=== PATIENT | female | born 1950 | race Caucasian/White ===

== ENCOUNTER 2024-09-17 08:50 | Emergency (ER) | payer MEDICARE, SELFPAY ==
[2024-09-17 09:00] VITALS: BP 115/75; PULSE 79; RESP 16; TEMP 36.3; O2SAT 100
--- OUTSIDE RECORDS SUMMARY | 2024-09-17 09:16 | XMS_ITS | Encounter Summary ---
Author Organization [facility] Address [address] [place] [address] Care Team Providers Care Senior Auditor Name Role Phone Jordana Schofield Unavailable Unavailable Kateryna Morales MD Primary Care Provider [phone] Kateryna Morales MD Unavailable Karen Wilkins DO Primary Care Provider [phone] Karen Wilkins DO Unavailable [phone] Reason for Referral * Test (Routine) - Closed Specialty Diagnoses / Procedures Referred By Contac t Referred To Contact Diagnoses Paroxysmal atrial fibrillation ([facility]) Procedures TRANSESOPHAGEAL ECHO Key Osborne MD [address] [address] Phone: tel: fax: Referral ID Status Reason Start Date Expiration Date Visits Re quested Visits Authorized [id number] Closed 05/02/2023 05/01/2024 1 1 ER CARBON PAPER Encounter Details Date Type Department Care Team (Late st Contact Info) Description 05/02/2023 Prep for Case Cardiovascular Medicine: [facility] [address] [facility]. [address] 5, [address] [place] [address] Key Osborne MD [address] [facility] [id number] [place] [address] Paroxysmal atrial fibrillation (CMS-HCC) (Primary Dx) Social History Tobacco Use Types Packs/Day Years Used Date Smoking Tobacco: Former Cigarettes 0.5 10 1 1973 Smokeless Tobacco: Never Comments:I quit smoking in m y late . Alcohol Use Standard Drinks/Week Comments Not Currently 0 (1 standard drink = 0.6 oz pure alcohol) I quit drinking in May 1988 PHQ-2 Answer Date Recorded PHQ-2 Score 0 04/16/2023 Social Connections Answer Date Recorded Do you often feel that you lack companionship? N o 04/14/2023 Alcohol Use Answer Date Recorded Alcohol Use No 06/01/2021 Male: 9+ ounces (15+ Standard Drinks) per week T hreshold Not on file 06/01/2021 Female: 4.8+ ounces (8+ Standard Drinks) per wee k Threshold 0 06/01/2021 Financial Resource Strain Answer Date R ecorded In the last 12 months, has y our Digital Reasoning shut off your service for not paying your bills? No 04/14/2023 Do problems getting childcar e make it difficult to work or study? No 04/14/2023 In the last 12 months, have you needed to see a doctor, but could not because of cost? No 04/14/2023 In the last 12 months, did you skip medications to save money? No 04/14/2023 Stress Answer Date Recorded Total Score: 0 05/18/2022 Food Insecurity Answer Date Recorded Within the past 12 months we worried whether our food would run out before we got money to buy more. Never True 04/14/2023 Within the past 12 months th e food we bought just didn't last and we didn't have money to get more. Never True 04/14/2023 Transportation Needs Answer Date Record ed In the past 12 months, have you ever gone without health care because you didn't have a way to get there? No 04/14/2023 Housing Stability Answer Date Recorded Are you worried that in the next 2 months, you may not have stable housing? No 04/14/2023 Health Literacy Answer Date Recorded Do you have problems underst anding what is told to you about your medical conditions? No 04/14/2023 Comments No Sex and Gender Information Value Date Recorded Sex Assigned at Female 11/21/2019 9:40 AM CDT Legal Sex Female 5:58 PM CDT Gender Identity Female 11/21/2019 9:40 AM CDT Sexual Orientation Straight 08/15/2020 8: 43 PM CDT documented as of this encounter Functional Status * Does the patient have a hearing impairment: Answer Date of Assessment Author No 06/28/2022 4:00 AM CDT Bronwyn Vail RN * Does the patient have a visual impairment: Answer Date of Assessment Author Yes 11/12/2020 1:33 PM CDT Marla Zuniga MA * Does the patient have impaired ambulation: Answer Date of Assessment Author No 11/12/2020 1:33 PM CDT Marla Zuniga MA * Does the patient have an activity of daily living (ADL) impairment: Answer Date of Assessment Author No 11/12/2020 1:33 PM CDT Marla Zuniga MA * Does the patient have an instrumental activity of daily living (IADL) impairment: Answer Date of Assessment Author No 11/12/2020 1:33 PM CDT Marla Zuniga MA documented as of this encounter Mental Status * Does the patient have a cognitive impairment: Answer Entry Date Author No 11/12/2020 1:33 PM CDT Marla Zuniga MA documented in this encounter Plan of Treatment Not on file documented as of this encounter Goals Goal Patient Goal Type Associated Problems Recent Progress Patient-Stated? Author GOAL General On track( 023 11:07 AM CDT) No Gaby Batres RN Note: Not to fall Resume normal activities Hospital On track( 021 10:16 PM CDT) Yes Ellen May RN Decrease pain Hospital On track( 021 10:17 PM CDT) No Garrett Torrez, TOW TRUCK DRIVER-COVER MAKER Note: Pt's pain will be under control while in the hospital. Medication Adherence Medication Adherence On track( 021 10:16 PM CDT) No Josefina Koch RN documented as of this encounter Results * PRASHANT INTCD PEAT SHREDDER TENDER (07/09/2023 12:55 PM CDT) BSA 1.69 m2 OTHER OUTSIDE LAB CV ECHO PV TOOLING SPECIALIST EP staff; anesthesia staff OTHER OUTSIDE LAB Cardiology Ultrasound Machine Siemens [id number] OTHER OUTSIDE LAB Anatomical Region Laterality Modality Ultrasound Narrative 07/09/2023 7:19 PM CDT Intraoperative transesophageal echocardiogram was performed during the Watchman left atrial appendage closure procedure. Limited Baseline PRASHANT: Left ventricular systolic function is normal. LVEF=55-60% 3 device leads present in the SVC. Mild to moderate left atrial enlargement. The left atrium and left atrial appendage are free of thrombus. No pericardial effusion. Left atrial appendage measurements (width x depth in mm) 0 degrees: 20.3 x 28.7 45 degrees: 20.3 x 25.7 90 degrees: 22.2 x 24.8 135 degrees: 24.4 x 26.5 Successful interatrial septostomy was performed under PRASHANT-guidance. The atrial septum was punctured using LiquidTextcross RF wire and left atrial access obtained. PRASHANT and fluoroscopy were used to guide wires, catheters and Watchman closure device into place during the procedure. WATCHMAN FLX Pro 31 mm device deployed. Lot # [id number] Post deployment device measurements (width in mm) 0 degrees: 24.7 45 degrees: 24.2 90 degrees: 25.3 135 degrees: 25.1 Post Procedure: Well-seated, well-positioned 31 mm WATCHMAN FLX Pro left atrial appendage closure device. Color Doppler shows no flow seen through or around the closure device. No device-related thrombus. No left atrial thrombus. No pericardial effusion. A small, left to right interatrial shunt is noted at the site of the trans-septal puncture. us Key Field MD ECHO ORDERABLES Final Result documented in this encounter Visit Diagnoses Diagnosis Paroxysmal atrial fibrillation ([facility])- Primary Atrial fibrillation documented in this encounter Orders Case Request Count Last Ordered Date First Orde red Date CASE REQUEST EP LAB 1 05/02/2023 documented in this encounter Additional Health Concerns Infection Onset Date Last Indicated Resolved Time C difficile Rule-Out 08/29/2023 07/12/2024 024 9:19 PM CDT C difficile Rule-Out 07/11/2024 07/12/2024 025 3:06 PM CDT Assessment Noted Time A fall risk assessment has been complete d for the patient 05/01/2023 4:28 PM COATER CARBON PAPER PHQ-2 Depression Total Score: 0 04/16/19 24 8:27 PM COATER CARBON PAPER documented as of this encounter Care Teams Senior Auditor Relationship Specialty Start Date End Date Kateryna Morales MD [address] [place] [id number] PCP - General Internal Medicine 11/23/22 02/05/24 Karen Wilkins DO [address] [place] [address] PCP - General Geriatric Medicine, Internal Medicine 02/06/24 Jordana Schofield 12/13/15 Kateryna Morales MD [address] [place] [address] Internal Medicine 11/23/22 Karen Wilkins DO [address] [place] [address] CCP - Continuity of Care Provider Geriatric Medicine, Internal Medicine 02/06/24 documented as of this encounter
--- OUTSIDE RECORDS SUMMARY | 2024-09-17 09:16 | XMS_ITS | Continuity of Care Document ---
Author Organization [facility]. If a dditional information is needed, contact Health Information Management at [phone] Address [address] [place] [address] Phone Care Team Providers Care Retail Route Supervisor Name Role Phone Unavailable Unavailable Unavailable Unavailable Unavailable Unavailable Unavailable Unavailable Unavailable Unavailable Unavailable Unavailable Unavailable Unavailable Unavailable Unavailable Unavailable Unavailable Unavailable Problems Illness, unspecified Onset:04-Dec-2019 Hyperlipidemia Comments:Other hyperlipidemi a I10(I10) Comments:Essential hypertens ion with goal blood pressure less than 140\/90 Acute idiopathic pericarditi s Comments:Acute idiopathic pericarditis Paroxysmal atrial fibrillati on Comments:Intermittent atrial fibrillation Mesenteric artery stenosis Comments:Superior mesenteric artery stenosis Dupuytren contracture of lef t palm Comments:Dupuytren's contrac ture of left hand Pain in hallux Comments:Pain of left great toe Essential (primary) hyperten arnol Other hyperlipidemia Allergies and Adverse Reactions Penicillins(Allergy) Onset: 10-Sep-2014 Reaction:UNKNOWN No Known Contrast Allergies( Allergy) Onset: 07-May-2008 No Known Food Allergies(Venkat rgy) Onset: 07-May-2008 No Known Other Allergies(All ergy) Onset: 07-May-2008 PENICILLIN(Allergy) Onset: 07-May-2008 Reaction:UNKNOWN No Known Allergies(Allergy) Doxycycline Hyclate(Allergy) Reaction:severe diarrhea Penicillin G Potassium 54032 00 UNT/ML Injectable Solution(Allergy) Reaction:childhood Medications Cephalexin 500 MG Oral Table t;500 MG Orally Four times a day, 1 tablet Quantity:40 SNAVELY SONNY Start:12-May-2020 Status:Inactive Comments:500 MG Orally Four times a day, 1 tablet Levofloxacin 250 MG Oral Tab let [Levaquin];250 MG Orally Daily, 1 tablets Quantity:7 KARLEE DENNIS Start:30-Jan-2017 Status:Inactive Comments:250 MG Orally Daily, 1 tablets NITROFURANTOIN, MACROCRYSTAL S 25 MG / Nitrofurantoin, Monohydrate 75 MG Oral Capsule [Macrobid];100 MG Orally every 12 hrs, 1 capsule with food Quantity:10 KARLEE DENNIS Start:29-Jan-2017 Status:Inactive Comments:100 MG Orally every 12 hrs, 1 capsule with food 120 ACTUAT Fluticasone propi tong 0.05 MG/ACTUAT Nasal Inhaler;50 MCG/ACT Nasally Once a day, 2 sprays in each nostril Quantity:1 KARLEE DENNIS Start:11-Nov-2015 Comments:50 MCG/ACT Nasally Once a day, 2 sprays in each nostril 12 HR desloratadine 2.5 MG / Pseudoephedrine sulfate 120 MG Extended Release Oral Tablet [Clarinex-D];2.5-120 MG Orally every 12 hrs, 1 tablet Quantity:60 KARLEE DENNIS Start:11-Nov-2015 Comments:2.5-120 MG Orally every 12 hrs, 1 tablet {21 (methylPREDNISolone 4 MG Oral Tablet [Medrol]) } Pack [Medrol Dosepak];4 MG Orally As directed, as directed Quantity:1 KARLEE DENNIS Start:04-Nov-2015 Status:Inactive Comments:4 MG Orally As directed, as directed POTASSIUM CHLORIDE 20 MEQ OR AL PACKET;20 MEQ Orally once a day, 1 tablet Quantity:14 KARLEE DENNIS Start:19-May-2015 Status:Inactive Comments:20 MEQ Orally once a day, 1 tablet Docusate Sodium 100 MG Oral Capsule [Colace];100 MG Orally Once a day, 1 capsule as needed Quantity:30 KARLEE DENNIS Start:07-Apr-2014 Status:Inactive Comments:100 MG Orally Once a day, 1 capsule as needed Hydrochlorothiazide 12.5 MG / Lisinopril 20 MG Oral Tablet;20-12.5 MG Orally as directed, 1 tab in am and 0.5 tab in pm PATSYKATIE SONNY Start:06-Sep-2012 Status:Inactive Comments:20-12.5 MG Orally as directed, 1 tab in am and 0.5 tab in pm Aspir-81;81 MG Orally Once a day, 1 tablet KARLEE DENNIS Status:Inactive Comments:81 MG Orally Once a day, 1 tablet Metamucil;48.57 % Orally Sandra ly, as directed KARLEE DENNIS Status:Inactive Comments:48.57 % Orally Daily, as directed Aspirin 81 MG Chewable Table t;81 MG Orally Once a day, 1 tablet KARLEE DENNIS Status:Inactive Comments:81 MG Orally Once a day, 1 tablet Atorvastatin Calcium;40 MG O rally Once a day, 1 tablet Quantity:90 KARLEE DENNIS Comments:40 MG Orally Once a day, 1 tablet Fiber;- Orally Daily, as dir ected KARLEE DENNIS Comments:- Orally Daily, as directed apixaban 5 MG Oral Tablet [Eliquis];5 MG Orally BID, 1 tablet KARLEE DENNIS Comments:5 MG Orally BID, 1 tablet Famotidine;40 MG Orally Twic e a day, 1 tablet as needed KARLEE DENNIS Status:Inactive Comments:40 MG Orally Twice a day, 1 tablet as needed Biotin;10 MG Orally Once a d ay, 1 tablet KARLEE DENNIS Status:Inactive Comments:10 MG Orally Once a day, 1 tablet Ibuprofen;200 MG Orally Thre e times a day, 1 tablet with food or milk as needed KARLEE DENNIS Status:Inactive Comments:200 MG Orally Three times a day, 1 tablet with food or milk as needed Melatonin;5 MG Orally Once a day, 1 tablet at bedtime as needed with food KARLEE DENNIS Status:Inactive Comments:5 MG Orally Once a day, 1 tablet at bedtime as needed with food Acetaminophen;500 MG Orally every 6 hrs, 1 tablet as needed KARLEE DENNIS Status:Inactive Comments:500 MG Orally every 6 hrs, 1 tablet as needed Biotin Forte;5 MG Orally Twi ce a day, 1 tablet Quantity:30 KARLEE DENNIS Status:Inactive Comments:5 MG Orally Twice a day, 1 tablet Simvastatin;20 MG orally Onc e each night, 1 tab(s) Quantity:90 KARLEE DENNIS Status:Inactive Comments:20 MG orally Once each night, 1 tab(s) Centrum Silver 50+Women;- Or ally , as directed KARLEE DENNIS Comments:- Orally , as direc ellen Calcium Carbonate 1500 MG / Cholecalciferol 200 UNT Oral Tablet;600-200 MG-UNIT Orally Twice a day, 1 tablet with food KARLEE DENNIS Status:Inactive Comments:600-200 MG-UNIT Orally Twice a day, 1 tablet with food Spironolactone 25 MG Oral Ta blet;25 MG Orally Once a day, 1 tablet KARLEE DENNIS Status:Inactive Comments:25 MG Orally Once a day, 1 tablet Lasix;40 MG Orally Once a da y, 1 tablet Quantity:30 KARLEE DENNIS Status:Inactive Comments:40 MG Orally Once a day, 1 tablet Flecainide Acetate 50 MG Ora l Tablet;50 MG Orally BID, 1 tablet KARLEE DENNIS Comments:50 MG Orally BID, 1 tablet Docusate Calcium;240 MG Oral ly BID, 2 capsules KARLEE DENNIS Status:Inactive Comments:240 MG Orally BID, 2 capsules docosahexaenoic acid 200 MG / Eicosapentaenoic Acid 300 MG / Vitamin E 1 UNT Oral Capsule;1000 MG Orally Once a day, 1 capsule KARLEE DENNIS Status:Inactive Comments:1000 MG Orally Once a day, 1 capsule Probiotic;250 MG Orally Ismael y, 1 capsule KARLEE DENNIS Comments:250 MG Orally Daily , 1 capsule Align;4 MG Orally , as direc ellen KARLEE DENNIS Comments:4 MG Orally , as di rected Felodipine;10 mg Orally Once a day, 1 tablet KARLEE DENNIS Status:Inactive Comments:10 mg Orally Once a day, 1 tablet Colchicine;0.6 MG Orally BID , 1 tablet KARLEE DENNIS Status:Inactive Comments:0.6 MG Orally BID, 1 tablet Escitalopram 10 MG Oral Tabl et [Lexapro];10 MG Orally Once a day, 1 tablet Quantity:90 KARLEE DENNIS Status:Inactive Comments:10 MG Orally Once a day, 1 tablet nebivolol 10 MG Oral Tablet [Bystolic];10 MG Orally Once a day, 1 tablet KARLEE DENNIS Status:Inactive Comments:10 MG Orally Once a day, 1 tablet Budesonide ER;3 MG Orally 3 times a day, KARLEE DENNIS Comments:3 MG Orally 3 times a day, Metoprolol Succinate ER;25 M G Orally Once a day, 1 capsule KARLEE DENNIS Comments:25 MG Orally Once a day, 1 capsule Zostavax;80771 UNT/0.65ML Subcutaneous as directed, as directed Quantity:1 KARLEE DENNIS Comments:11703 UNT/0.65ML Subcutaneous as directed, as directed Unknown Medication;Unknown Medication Comments:Unknown Medication atorvastatin 20 MG Oral Tablet;atorvastatin 20 mg tablet 1 Tab PO, Daily Hydrochlorothiazide 25 MG / Triamterene 37.5 MG Oral Tablet;37.5-25 MG , TAKE 1 TABLET BY MOUTH EVERY MORNING Quantity:90 KARLEE DENNIS Status:Inactive Comments:37.5-25 MG , TAKE 1 TABLET BY MOUTH EVERY MORNING Escitalopram 10 MG Oral Tabl et;10 MG , TAKE 1 TABLET BY MOUTH EVERY DAY Quantity:90 KARLEE DENNIS Comments:10 MG , TAKE 1 TABL ET BY MOUTH EVERY DAY Lisinopril;20 MG , TAKE 1 TA BLET ONCE A DAY ORALLY Quantity:90 KARLEE DENNIS Status:Inactive Comments:20 MG , TAKE 1 TABLET ONCE A DAY ORALLY pantoprazole 40 MG Delayed R elease Oral Tablet;40 MG Orally Daily, 1 tablet Quantity:90 KARLEE DENNIS Comments:40 MG Orally Daily, 1 tablet Procedures INSERT LENS AT CATAR EXT Encounters Ambulatory 12-Apr-2021 16:41 UNKNOWN (Attending) [facility] Ambulatory 16-Dec-2020 16:39 UNKNOWN (Attending) [facility] pre-admission 13-Oct-2020 10:15 Karlee Garber MD (Attending) [facility] Ambulatory 06-Dec-2019 LIVAN MONTALVO (Attending) [address] tel: Ambulatory 04-Dec-2019 LIVAN MONTALVO (Attending) [address] tel: Ambulatory 18-Nov-2019 15:04 Karlee Garber MD (Attending) [facility] Ambulatory 16-Apr-2018 16:43 UNKNOWN (Attending) [facility] Ambulatory 10-Aug-2017 18:25 UNKNOWN (Attending) [facility] pre-admission 17-Mar-2014 09:00 Karlee Garber MD (Attending) [facility]
--- OUTSIDE RECORDS SUMMARY | 2024-09-17 09:16 | XMS_ITS | Encounter Summary ---
Author Organization [facility] Address [address] [place] [address] Care Team Providers Care Furnace Packer Name Role Phone Jordana Schofield Unavailable Unavailable Dianne Butts MD Primary Care Provider [phone] Ayse Sherman MD Primary Care Provider Ayse Sherman MD Unavailable [phone] Kateryna Morales MD Primary Care Provider Kateryna Morales MD Unavailable Karen Wilkins DO Primary Care Provider [phone] Karen Wilkins DO Unavailable [phone] Reason for Visit * Reason Comments Medication Refill Encounter Details Date Type Department Care Team (Late st Contact Info) Description 08/16/2020 Refill Cardiovascular Medicine: [facility] [place], [address] [place] [address]. [address], [address] [place] [address] Drew Martin MD [address] [place] [address] Medication Refill Social History Tobacco Use Types Packs/Day Years Used Date Smoking Tobacco: Former Cigarettes Smokeless Tobacco: Never Comments:Quit at age 23 Alcohol Use Standard Drinks/Week Comments Not Currently 0 (1 standard drink = 0.6 oz pur e alcohol) PHQ-2 Answer Date Recorded PHQ-2 Score 0 01/13/2020 Comments No Sex and Gender Information Value Date Recorded Sex Assigned at Female 11/21/2019 9:40 AM CDT Legal Sex Female 5:58 PM CDT Gender Identity Female 11/21/2019 9:40 AM CDT Sexual Orientation Straight 08/15/2020 8: 43 PM CDT COVID-19 Exposure Response Date Recorded In the last month, have you been in contact with someone who was confirmed or suspected to have Coronavirus / COVID-19? No / Unsure 08/15/2020 2:41 PM CDT documented as of this encounter Functional Status * Does the patient have a hearing impairment: Answer Date of Assessment Author No 08/15/2020 8:46 PM CDT Stanislav Koch RN documented as of this encounter Ordered Prescriptions Prescription Sig Dispense Quantity Refills Last Filled Start Date End Date colchicine 0.6 mg tablet Take one tablet by mouth twice daily. 60 tablet 2 08/16/2020 08/29/2020 documented in this encounter Plan of Treatment Not on file documented as of this encounter Goals Goal Patient Goal Type Associated Problems Recent Progress Patient-Stated? Author Resume normal activities Hospital On track( 10:16 PM CDT) Yes Ellen May RN Decrease pain Hospital On track( 10:17 PM CDT) No Garrett Torrez, ASSISTANT SERVICE MANAGER-ENTRY LEVEL FINANCIAL ANALYST Note: Pt's pain will be under control while in the hospital. Medication Adherence Medication Adherence On track( 10:16 PM CDT) No Josefina Koch RN documented as of this encounter Visit Diagnoses Not on filedocumented in this encounter Discontinued Medications Medication Sig Discontinue Reason Start Date End Da te colchicine 0.6 mg tablet Take one tablet by mouth daily. 07/20/2020 08/16/2020 documented as of this encounter Additional Health Concerns Infection Onset Date Last Indicated Resolved Time C difficile Rule-Out 08/29/2023 07/12/2024 024 9:19 PM CDT C difficile Rule-Out 07/11/2024 07/12/2024 025 3:06 PM CDT Assessment Noted Time A fall risk assessment has been complete d for the patient 08/16/2020 8:00 PM CDT PHQ-2 Depression Total Score: 0 01/13/20 20 2:49 PM CDT documented as of this encounter Care Teams Furnace Packer Relationship Specialty Start [place] [address] [facility] [address] [place] [address] PCP - General Internal Medicine 03/21/16 01/16/22 Ayse Sherman MD [address] [address] PCP - General Internal Medicine 01/17/22 11/22/22 Kateryna Morales MD [address] [place] [address] PCP - General Internal Medicine 11/23/22 02/05/24 Karen Wilkins DO [address] [place] [address] PCP - General Geriatric Medicine, Internal Medicine 02/06/24 Jordana Schofield 12/13/15 Ayse Sherman MD [address] [address] CCP - Continuity of Care Provider Internal Medicine 01/19/22 11/27/22 Kateryna Morales MD [address] [place] [id number] Internal Medicine 11/23/22 Karen Wilkins DO [address] [place] [address] CCP - Continuity of Care Provider Geriatric Medicine, Internal Medicine 02/06/24 documented as of this encounter
--- OUTSIDE RECORDS SUMMARY | 2024-09-17 09:16 | XMS_ITS | Encounter Summary ---
Author Organization [facility] Address [address] [place] [address] Care Team Providers Care Broach Grinder Name Role Phone Jordana Schofield Unavailable Unavailable Kateryna Morales MD Primary Care Provider [phone] Kateryna Morales MD Unavailable Karen Wilkins DO Primary Care Provider [phone] Karen Wilkins DO Unavailable [phone] Reason for Referral * Test (Routine) - Closed Specialty Diagnoses / Procedures Referred By Contac t Referred To Contact Cardiology Diagnoses PAF (paroxysmal atrial fibrillation) ([facility]) Procedures TRANSESOPHAGEAL ECHO Key Osborne MD [address] [place] [address] Phone: tel: fax: Cardiovascular Medicine: [facility] [address], [address] [place] [address] Phone: tel: fax: Referral ID Status Reason Start Date Expiration Date Visits Re quested Visits Authorized [id number] Closed 07/10/2023 07/09/2024 1 1 Encounter Details Date Type Department Care Team (Late st Contact Info) Description 07/10/2023 Pre-Admit Orders Only Cardiovascular Medicine: [facility] [address] [place] [address] Ashli Paz BSN PAF (paroxysmal atrial fibrillation) ([facility]) (Primary Dx) Social History Tobacco Use Types [...] the last 12 months, has y our [employer] shut off your service for not paying [...] Progress Patient-Stated? Author GOAL General On track( 11:07 AM CDT) No Gaby Batres RN Note: Not to fall Resume normal activities Hospital On track( 10:16 PM CDT) Yes Ellen May RN Decrease pain Hospital On track(05/16/2 021 10:17 PM CDT) No Garrett Torrez, IT HELP DESK ASSOCIATE-VP [employer] Note: Pt's pain will be under control while in the hospital. Medication Adherence Medication Adherence On track( 021 10:16 PM CDT) Josefina Hoyt RN documented as of this encounter Results * PRASHANT W/O CONTRAST & W/ 3D ON CART (10/09/2023 11:03 AM CDT) BSA 1.68 m2 OTHER OUTSIDE LAB Referring Provider Kateryna Morales OTHER OUTSIDE LAB Cardiology Ultrasound Machine [employer] OTHER OUTSIDE LAB CV ECHO PV PHOTOGRAPHIC AIDE Anesthesia Team/DAVE Bonilla OTHER OUTSIDE LAB ECHO EF 50 % OTHER OUTSIDE LAB Anatomical Region Laterality Modality Ultrasound Narrative 10/09/2023 2:13 PM CDT Low normal left ventricular systolic function with an EF of 50%. No regional wall motion abnormalities. Normal right ventricular size and function. Right-sided device leads are noted. Trace MR. Mild TR. There is a known 31 mm Watchman FLX Pro device. It is well-seated. There is no thrombus. There is no color flow around the device. Normal aortic root size. There is minimal plaquing in the thoracic aorta. No pericardial effusion. There is an epicardial fat pad noted. 3-D imaging was performed during the procedure for further evaluation of cardiac structure and function. Left Ventricle The left ventricular size is normal. The left ventricular systolic function is low normal. The visually estimated ejection fraction is 50%. There are no segmental wall motion abnormalities. Abnormal septal motion consistent with right ventricular pacing. Right Ventricle The right ventricular size is normal. The right ventricular systolic function is normal. Pacemaker lead present in the ventricle. Left Atrium Mildly dilated. There is no color evidence of PFO or residual flow across the interatrial septum from the prior transseptal puncture. 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 The device was well-seated. There is no thrombus on the device. There is no color flow around the device. Right Atrium Normal size. Pacemaker lead present in the right atrium. IVC/SVC Normal atriocaval connections. Mitral Valve Normal valve structure. No stenosis. Trace regurgitation. Tricuspid Valve Normal valve structure. No stenosis. Mild regurgitation. Aortic Valve Normal valve structure. Trileaflet. No stenosis. No regurgitation. Pericardium Pericardial fat pad present. No pericardial effusion. Pulmonary Normal valve structure. No stenosis. No regurgitation. Aorta Aortic root was normal in size. There is minimal plaquing in the thoracic aorta. Key Field MD ECHO ORDERABLES Final Result documented in this encounter Visit Diagnoses Diagnosis PAF (paroxysmal atrial fibrillation) ([facility])- Primary Atrial fibrillation PAF (paroxysmal atrial fibrillation) ([facility]) Atrial fibrillation documented in this encounter Additional Health Concerns Infection Onset Date Last Indicated Resolved Time C difficile Rule-Out 08/29/2023 07/12/2024 024 9:19 PM CDT C difficile Rule-Out 07/11/2024 07/12/2024 025 3:06 PM CDT Assessment Noted Time A fall risk assessment has been complete d for the patient 07/10/2023 6:31 AM CDT PHQ-2 Depression Total Score: 0 04/16/19 24 8:27 PM PROJECTOR BOOTH OPERATOR documented as of this encounter Care Teams Broach Grinder Relationship Specialty Start Date End Date Kateryna Morales MD [address] [place] [address] PCP - General Internal Medicine 11/23/22 02/05/24 Karen Wilkins DO [address] [place] [address] PCP - General Geriatric Medicine, Internal Medicine 02/06/24 Jordana Schofield 12/13/15 Kateryna Morales MD [address] [place] [address] Internal Medicine 11/23/22 Karen Wilkins DO [address] [place] [address] CCP - Continuity of Care Provider Geriatric Medicine, Internal Medicine 02/06/24 documented as of this encounter
--- OUTSIDE RECORDS SUMMARY | 2024-09-17 09:16 | XMS_ITS | Clinical Summary ---
Author Organization [facility] Address [address] [place] [address] Care Team Providers Care Order Entry Technician Name Role Phone Jordana Schofield Unavailable Unavailable Kateryna Morales MD Unavailable Karen Wilkins DO Primary Care Provider Karen Wilkins DO Unavailable [phone] Source Comments Some departments are not documenting in the electronic medical record. If you do not see the information that you expected, contact Release of Information in the Health Information Management department at [phone] for further assistance in locating additional records.[facility] Allergies Active Allergy Reactions Criticality Noted Date Comments Doxycycline DIARRHEA Low 11/23/2019 severe diarrhea Omeprazole SWOLLEN TONGUE High 07/30/2024 Penicillins UNKNOWN Low 03/21/2016 Reaction happen when pt was a child. Denies retrial of Penicillin. Unsure if she has had Amoxicillin. Has tolerated Keflex. Medications tucrjqjf-tov-ac nv-KA-[id number] (CENTRUM SILVER WOMEN) 8 mg iron-400 mcg-300 mcg tab Take 1 tablet by mouth daily. Active cyanocobalamin (vitamin B-12) 500 mcg tablet Take one tablet by mouth every 48 hours. Active CHOLECALCIFEROL (VITAMIN D3) PO Take 1 tablet by mouth every morning. Active calcium carbonate (CALCIUM 500 PO) Take 600 mg by mouth daily. Active aspirin EC (ASPIR-LOW) 81 mg tabletIndicatio ns:Post watchman Take one tablet by mouth daily. Indications: Post watchman 024 Active flecainide (TAMBOCOR) 50 mg tablet TAKE 1 TABLET BY MOUTH TWICE A DAY 180 tablet 3 024 Active acetaminophen (TYLENOL EXTRA STRENGTH) 500 mg tablet Take one tablet by mouth every 6 hours as needed. Active albuterol sulfate (PROAIR HFA) 90 mcg/actuation HFA aerosol inhaler Inhale two puffs by mouth into the lungs every 6 hours as needed for Wheezing or Shortness of Breath. 8.5 g 1 025 Active amLODIPine (NORVASC) 5 mg tablet Take one tablet by mouth daily. 90 tablet 1 025 Active rosuvastatin (CRESTOR) 5 mg tablet Take one tablet by mouth daily. 90 tablet 3 025 Active loperamide (IMODIUM A-D) 2 mg capsule Take one capsule by mouth daily as needed for Diarrhea. Active famotidine (PEPCID) 20 mg tabletIndicatio ns:Gastroesopha geal reflux disease, unspecified whether esophagitis present Take one tablet by mouth twice daily. 180 tablet 1 025 Active metoprolol succinate XL (TOPROL XL) 25 mg extended release tabletIndicatio ns:ventricular rate control in atrial fibrillation Take one tablet by mouth daily. Indications: ventricular rate control in atrial fibrillation Active budesonide (ENTOCORT EC) 3 mg capsule Take three capsules by mouth every morning for 28 days, THEN two capsules every morning for 14 days, THEN one capsule every morning for 14 days. 126 capsule 025 2024 Active sertraline (ZOLOFT) 100 mg tablet Take one tablet by mouth daily. 90 tablet 025 Active metoprolol succinate XL (TOPROL XL) 25 mg extended release tabletIndicatio ns:ventricular rate control in atrial fibrillation TAKE ONE TABLET BY MOUTH DAILY. INDICATIONS: VENTRICULAR RATE CONTROL IN ATRIAL FIBRILLATION 90 tablet 1 024 2024 Discontinued sertraline (ZOLOFT) 50 mg tabletIndicatio ns:Subjective memory complaints TAKE 1 TABLET BY MOUTH EVERY DAY 90 tablet 025 2024 Discontinued mupirocin (CENTANY) 2 % topical ointment Apply topically to affected area three times daily. 22 g 025 2024 Discontinued omeprazole (WANDASEC) 40 mg capsule Take one capsule by mouth daily before breakfast. 90 capsule 1 025 2024 Discontinued(S yehuda effects) Active Problems Problem Noted Date Diagnosed Date Difficulty swallowing 07/31/2024 Assessment & Plan (08/01/2024 7:58 AM CDT): Patient reports that this started after trying omeprazole. She endorses symptoms of swelling of tongue and throat after starting omeprazole. She messaged her GI doctor and stopped this immediately. This was added to her allergy list. She states that after trying the omeprazole 1 time she started having difficulty swallowing. This has been going on for about 1 week. She reports that she has to take a lot of water to get things down even things like bread. She also reports nausea that started after trying the omeprazole. We discussed that this is an atypical response. Advised that she not take any PPIs in the future. Patient has an upcoming EGD when she has her colonoscopy next week. I advised her to discuss this with them prior to the EGD. She was advised that if things do not improve after the EGD that she should let me know and I will order a swallow study through speech therapy. Patient reports understanding. ER precautions provided for red flag symptoms. Urinary incontinence 07/31/2024 Assessment & Plan (07/31/2024 7:12 PM CDT): Patient reports a mixture of stress and urge incontinence. She has worn panty liners for a long time which seems to help the symptoms. She overall reports that this is not concerning to her. We discussed exercises. We also discussed that we could trial medications, physical therapy, or referrals in the future if this were to become bothersome; patient expressed understanding. Gastroesophageal reflux disease 07/31/2024 Assessment & Plan (07/31/2024 7:17 PM CDT): Patient trialed omeprazole with a bad reaction. See separate A&P. She is currently on famotidine. She was told by GI that she could increase this to twice per day. However she is already on 40 mg. At this time, will trial 20 mg twice a day to see if this gives her better coverage. She is having an EGD next week with GI. Will await additional recommendations from GI at this time. She will also notify if her nausea does not improve. She she feels that this started after trialing the omeprazole. She denies any abdominal pain. Incontinence of feces 07/11/2024 Assessment & Plan (07/31/2024 7:08 PM CDT): Ongoing x 20 years, off/on, recently recurred, now resolved Denied back pain, saddle anesthesia, leg weakness, abdominal pain, or new urinary incontinence Hx of Budesonide, likely for lymphocytic colitis? Hx of SMA stenosis as well Last colonoscopy 2015 - Attempted to obtain records for above history, unable to obtain. Patient does not have records either. - Order for colonoscopy placed; pt has upcoming appt - Stool studies reviewed, + for calprotectin, likely inflammation, repeat ordered by GI for post colonoscopy - MRI lumbar w/ and w/o to rule out spinal involvement at last visit, pt cancelled this d/t symptoms improving - Offered pelvic floor PT referral; pt would like to await above and then consider - ER precautions provided for acute changes, worsening of symptoms, back pain, leg weakness, saddle anesthesia. Assessment & Plan (07/11/2024 1:46 PM CDT): Ongoing x 20 years, off/on, recurred 2 weeks ago Denies back pain, saddle anesthesia, leg weakness, abdominal pain, or new urinary incontinence Hx of Budesonide, likely for lymphocytic colitis? Hx of SMA stenosis as well Last colonoscopy 2016 - Urgent referral to GI placed - Order for colonoscopy placed - Stool studies per orders - MRI lumbar w/ and w/o to rule out spinal involvement - Offered pelvic floor PT referral; pt would like to await above and then consider - ER precautions provided for acute changes, worsening of symptoms, back pain, leg weakness, saddle anesthesia. Since this is a chronic problem, will not send to ER today. Discussed w/ attending. Lymphocytic colitis 07/11/2024 Assessment & Plan (07/11/2024 12:48 PM CDT): Was on Budesonide in the past - Referral to GI placed - Stool studies - If stool studies are negative, consider repeat course of Budesonide - Advised to hold off on anti-diarrheals at this time Sebaceous cyst 07/11/2024 Assessment & Plan (07/11/2024 12:45 PM CDT): L breast No infection, erythema, or swelling at this time - Appt upcoming for removal with procedure clinic Medicare annual wellness visit, subsequent 07/11 Assessment & Plan (07/11/2024 12:46 PM CDT): #Medicare annual wellness encounter - We discussed all indicated USPSTF guidelines. Discussed health maintenance and prevention strategies. Provided health recommendations in preparation to handle health challenges that may occur during the next year. Advised to return to care if any symptoms present or any other health concerns. Continue annual wellness exams. - Mammogram, DEXA, vaccines UTD - Colonoscopy: due in 2025 but see separate A&P - ACP complete, discussed today Dyspnea on exertion 07/11/2024 Assessment & Plan (07/31/2024 7:07 PM CDT): Reports resolution - Continue Cardio follow up Assessment & Plan (07/11/2024 12:53 PM CDT): Denies chest pain or other cardiac symptoms Follows with Cardiology Sleep study 2023 reviewed - Continue Cardiology follow up - Patient reports this is not very bothersome to her at this time. Consider PFTs in the future if continues/worsens - ER precautions Coronary artery disease invo lving [place] coronary artery of [place] heart without angina pectoris 06/13/2024 Hyperlipidemia LDL goal <70 06/13/2024 Dense breasts 06/13/2024 Assessment & Plan (06/13/2024 10:47 AM CDT): Negative mammo 05/2024 - Offered US for dense breast tissue, pt will notify if she desires. Otherwise, repeat in 1 year Lung nodule 06/12/2024 Assessment & Plan (06/13/2024 10:43 AM CDT): CXR obtained w/ more conspicuous nodular opacity overlying the medial left upper lobe which could be osseous in nature. Has had cough x 2-3 weeks after cleaning insulation, s/p steroid + abx prescribed by Denies night sweats, fevers, weight loss - CT chest ordered, scheduled for 06/15/24 per chart review - Marble better with her sister's Albuterol, will refill today to use prn, educated on use - Await CT chest prior to additional recommendations Subjective memory complaints 03/28/2024 Assessment & Plan (07/11/2024 12:45 PM CDT): Markedly improved with Zoloft, continue current management and CTM Assessment & Plan (03/28/2024 1:26 PM SPINNER HYDRAULIC): FAST Stage 2 SLUMS today, recall 4/5 TSH and B12 reviewed Exam unremarkable - Discussed normal aging vs MCI vs dementia, currently consistent with normal aging; also discussed how anxiety/depression can play a role here - Handout provided and discussed for Mediterranean diet, cognitive strengthening, sleep, exercise, socialization - Advised to check out the LEAP program, info provided - Low risk for DEEP based on screening - Patient is currently independent in all ADLs and iADLs - CTM closely Tinnitus of both ears 03/28/2024 Assessment & Plan (03/28/2024 1:17 PM SPINNER HYDRAULIC): Ongoing No headache - MRI reviewed - Refer to Audiology for formal eval Osteopenia 03/28/2024 Assessment & Plan (03/28/2024 1:19 PM SPINNER HYDRAULIC): Osteopenia with elevated FRAX on 01/2024 DEXA with hx of fragility fracture FRAX SCORE (risk factor: History of fracture) 10 year risk hip fracture = 3.2% 10 year risk major osteoporotic fracture = 16.1% - Discussed treatment options in great detail - Will treat as clinical osteoporosis given history - Patient has hx of GERD; will plan for Reclast (order placed), kidney function reviewed - Vitamin D pending - Discussed risks, benefits, side effects including ONJ in great detail Age-related cataract of left eye 03/28/2024 Secondary cataract of right eye 03/28/2024 Abnormal QT interval present on electrocardiogra m 03/28/2024 Assessment & Plan (07/31/2024 7:13 PM CDT): - Avoid QTC prolonging meds Assessment & Plan (03/28/2024 1:22 PM SPINNER HYDRAULIC): - AVOID QTC PROLONGING MEDICATIONS - Switch to Zoloft from Lexapro today, see separate A&P Neutropenia 03/28/2024 Assessment & Plan (03/28/2024 1:30 PM SPINNER HYDRAULIC): Decreased WBC on recent lab - Recheck CBC today Encounter for medical examination to establish c are 01/25/2024 Assessment & Plan (01/25/2024 3:01 PM CDT): - History obtained and updated - Mammogram scheduled for April per patient - Ordered DEXA - Encouraged patient to get her 2nd Shingles vaccines (per chart review has only had one), encouraged RSV - Due for colonoscopy in 2025 - See separate A&P Dupuytren's contracture of left hand 01/25/2024 Overview (01/25/2024): Dupuytren's contracture of left hand Acute idiopathic pericarditis 01/25/2024 Overview (01/25/2024): Acute idiopathic pericarditis Temporal headache 01/25/2024 Assessment & Plan (01/25/2024 3:17 PM CDT): Ongoing x a couple of months, occurs 1-2x per week and lasts 2-3 minutes Denies changes in vision, dizziness, tearing, changes to smell, muscle aches, denies headaches today - ESR/CRP ordered to evaluate for temporal arteritis given location - Patient not interested in tx given that symptoms only last a couple of minutes - MRI w/ and w/o to evaluate intracranial pathology given headaches in older adult - ER precautions provided for worsening headaches, headaches associated with dizziness/nausea/vomiting, loss of vision or loss of consciousness. Patient expressed understanding. 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 11/01 Assessment & Plan (03/28/2024 1:21 PM SPINNER HYDRAULIC): Currently taking 7.5mg daily of Lexapro (1.5 tablets) QTC on last EKG was 515 - Advised to switch from Lexapro to Zoloft d/t QTC prolongation safety profile - STOP Lexapro, START Zoloft 50mg, can adjust thereafter - Pt and attending agree with above plan Assessment & Plan (11/27/2022 10:00 PM CDT): C/w Lexapro 10 mg/daily History of healed fragility fracture 08/14/2022 Trauma 06/28/2022 Closed right hip fracture 06/28/2022 Assessment & Plan (07/11/2022 5:20 PM CDT): s/p ORIF 06/28 Closed olecranon fracture, r ight, with routine healing, subsequent encounter 06/28/2022 Assessment & Plan (07/11/2022 5:21 PM CDT): s/p ORIF 06/28 Fall 06/28/2022 Posterior capsular opacifica tion of right eye, not obscuring vision 03/22/2022 Assessment & Plan (03/22/2022 5:18 PM SPINNER HYDRAULIC): Will defer YAG until after CE/IOL OS. Osteopenia of multiple sites 03/21/2022 Overview (07/17/2022): 07/17/2022 alendronate started. Patient had fragility fracture of right hip and ulna. Assessment & Plan (11/27/2022 10:00 PM CDT): She is telling me on her last office visit with Dr. Sherman they did have discussion about her osteopenia and consider having the R hip fracture they decided to proceed with starting oral bisphosphonate, she took the fosamax once or twice then after that she felt like she does not want to consider continuing, not very much convinced about doing osteoporosis treatment Her fracture was after a mechanical fall No hx of rib fracture, fragility fractures Last DEXA scan was done 03/21/2022 with lumber spine T score 0.3, R femoral neck -1.8, R hip total -2.0 Low Frax score We can consider for now conservative management with vit-D supplements range 6951-6529 units/daily, Ca supplements 600-1200 mg/daily and weight bearing exercises We can consider repeat DEXA scan in 1-2 years Thyroid nodule 02/21/2022 Overview (02/21/2022): Outside US 11/22/20. Unchanged from previous imaging. Nodule measures 7mm lateral left thyroid. Assessment & Plan (07/31/2024 9:38 AM CDT): US: 1. No suspicious thyroid nodule. 2. Mildly heterogeneous and vascular thyroid gland, which can be seen with thyroiditis. - TSH, T3, T4 wnl - Asymptomatic - CTM Assessment & Plan (06/13/2024 10:44 AM CDT): US: 1. No suspicious thyroid nodule. 2. Mildly heterogeneous and vascular thyroid gland, which can be seen with thyroiditis. - TSH, T3, T4 wnl - Asymptomatic - CTM Assessment & Plan (03/28/2024 1:15 PM SPINNER HYDRAULIC): Per chart review - Repeat US to ensure stability - TSH wnl History of squamous cell carcinoma of skin 02/02 Assessment & Plan (01/25/2024 3:23 PM CDT): - Patient has some concerns regarding her skin health, pt has a Cash Reconciliation Specialist and plans to schedule an upcoming appt. Encouraged regular skin checks and visits to the Cash Reconciliation Specialist. 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 All questions answered. Pt agrees to proceed with surgery on the left eye. A-fib 08/15/2020 Assessment & Plan (03/28/2024 1:16 PM SPINNER HYDRAULIC): S/p Watchman 07/09/23, on ASA and Plavix for 6 months per notes Follows closely with Cardiology - Now on ASA indefinitely - Continue Cardiology follow up - Patient doing well, asymptomatic Assessment & Plan (01/25/2024 3:08 PM CDT): S/p Watchman 07/09/23, on ASA and Plavix for 6 months per notes Pt reports she is still on DAPT Follows closely with Cardiology - Continue with Cardiology; will defer DAPT to SAPT decision to Cardiology - Patient doing well, asymptomatic Assessment & Plan (11/27/2022 9:55 PM CDT): On AC and BB Follow-up with cardiology Cardiac resynchronization th erapy pacemaker (COMMUNITY SERVICE SPECIALIST-P) in place 05/24/2020 Overview (08/19/2020): With lead repositioning during July 2020 hospitalization due to afib and pericardial effusion. Concern it was causing afib due to location of pacemaker lead. Assessment & Plan (11/27/2022 9:59 PM CDT): -status post COMMUNITY SERVICE SPECIALIST-P placement on 04/21/2020, complicated by microperforation, pericardial effusion, pericarditis, she underwent an RA lead revision and pocket relocation on 08/17/2020. Pericardial effusion 05/24/2020 Overview (06/24/2022): Premature atrial contractions 03/08/2020 Bradycardia 03/08/2020 PVC (premature ventricular contraction) 01/13/20 Abnormal cardiovascular stress test 01/13/2020 Palpitations 11/23/2019 Varicose veins of both lower extremities 016 Superior mesenteric artery stenosis 06/28/2010 Overview (03/15/2016): 1. Incidental finding during renal Duplex. Thought to be due to short dissection, not typical atherosclerotic disease. 2. Evaluated by Dr. Jian Santana 06/21/10: Asymptomatic, no intervention recommended at this time. 3. 07/26/15 - Mesenteric/Celiac Artery Duplex - No evidence of significant celiac stenosis. >70% Mesenteric artery stenosis with PSV >275 cm/sec. Comparted to study on 05/25/14, velocity increase throughout superior mesenteric artery with highest velocity in mid artery increasing from 337to 355cm/sec. Recommendation for monitoring with annual duplex. Assessment & Plan (07/31/2024 7:08 PM CDT): Repeat imaging ordered per prior recommendation: Mildly ectatic abdominal aorta without aneurysm or hemodynamically significant stenosis 2. There is elevated velocity and flow turbulence in the mid superior mesenteric artery, it did not fully meet criteria for >70% stenosis. Clinical correlation is advised, if high clinical concern consider CT with contrast 3. Elevated velocity in the inferior mesenteric artery that meets criteria for >70% stenosis. - Discussed with interventional specialist who states I looked at the mesenteric duplex and do not think the SMA is severe. Celiac is patent as well. So the DILEEP is not of much consequence. Her colitis which is lymphocytic is likely causing her symptoms and not mesenteric ischemia. If she does not improve in 6 months then I am happy to see her at any time if you feel that will be helpful - Patient is on ASA and statin - Patient is aware of above follow up Assessment & Plan (07/11/2024 12:43 PM CDT): Seen by Vascular in the past, no intervention recommended at that time - Repeat mesenteric artery duplex given 2016 duplex recommending annual. Patient reports she has not had follow up of this. Assessment & Plan (07/13/2010 4:23 PM CDT): She will follow up with Dr. Cobian in 6 mo. HTN (hypertension) 11/22/2009 Overview (07/11/2010): 05/10/2009 diagnosised w/ BP 176/121, started treatment w/ Bystolic. One month later started lisinopril HCT 06/21/10 abdominal aortic duplex:renal artery evaluation (pt to bring report) Assessment & Plan (01/25/2024 3:08 PM CDT): - BP today is well-controlled - Will continue treatment regimen - Check BP daily and keep log, will bring log to each visit Hypertension Education: Patient counseled on importance of exercise, weight loss, DASH diet, sodium restriction and moderation of alcohol consumption. Assessment & Plan (11/27/2022 9:57 PM CDT): Currently on Norvasc 5 mg/daily and metoprolol XL 50 mg/daily, she restarted recently about 2 weeks ago taking HCTZ 12.5 mg/daily as she started having COLES (mainly when going up and down the stairs) BP in normal range Assessment & Plan (07/18/2011 1:33 PM CDT): Weight loss and regular exercise have helped make her BP a lot easier to manage. Bystolic was discontinued and her BP is in a nice range on the current medical program. We agreed that we didn't need to schedule follow-up unless she had further cardiac issues. Assessment & Plan (07/13/2010 3:32 PM CDT): Emanuel's blood pressure appears to be well controlled at this time. I encouraged her to check her blood pressure at home and if she consistently has low readings or develops dizziness she will cut back on her bystolic. Chest pain 11/22/2009 Dyslipidemia 11/22/2009 Assessment & Plan (07/31/2024 7:07 PM CDT): Lipid panel 01/2024 well-controlled - Offered repeat today, pt would like to hold off until her next visit Assessment & Plan (01/25/2024 3:10 PM CDT): Compliant with Crestor - Repeat lipid panel and adjust plan accordingly Assessment & Plan (11/27/2022 9:56 PM CDT): C/w rosuvastatin 5 mg/daily Assessment & Plan (07/18/2011 1:33 PM CDT): She was started on simvastatin recently with a goal LDL of [address] Butts is planning follow-up lab work in August. Assessment & Plan (07/13/2010 3:34 PM CDT): Her lipids appear to have improved with her current regimen. I encouraged her to keep her exercise regimen and continue as she is doing. Breast fibrocystic disorder 11/22/2009 Resolved Problems Problem Noted Date Diagnosed Date Resolved Date Acute on chronic diastolic ( congestive) heart failure 04/08/2023 05/01/2023 Wears contact lenses 11/11/2021 024 NICM (nonischemic cardiomyopathy) 04/21/2020 05/01/2023 Overview (06/24/2022): A. 2007 exercise echocardiogram in outside facility negative for ischemia. B. 11/09/2016 MPI EF 57%, end-diastolic volume 65 mL, pulmonary to myocardial count ratio 0.42, no transit ischemic dilatation, exercised 8 minutes and 19 seconds, achieved a peak heart rate of 134 which is 87% of the maximum predicted heart rate, there is no evidence of ischemia. C. 11/26/2019 Holter monitor underlying rhythm was normal sinus rhythm, heart rate varied between 51-100, average was 69, frequent PVCs, total of 33,604 were noted, 11.4%, 4 episodes of nonsustained VT, frequent PACs, total of 27,690 were noted, this was 9.4%, brief episodes of SVT, there was one 2.1-second pause, no atrial. fib. D. 02/12/2020 Holter monitor, underlying rhythm was normal sinus rhythm, heart rate varied between 42 and 87, average heart rate 56, there were a total of 8660 PVCs, 5.5%, no VT, frequent PACs, total of 13,225, 8.4%, 7 episodes of SVT, 1653 pauses up to 3.6 seconds, no atrial fibrillation. E. 12/03/2019 Echo EF 45 to 50%, end-diastolic dimension 4.8 cm, mild diastolic dysfunction, RV size and function normal, trace MR, trace TR, trace AI, aortic root was normal in size, there is no pericardial effusion, the peak pulmonary pressures 26 mmHg. F. 12/29/2019 MPI EF 47%, end-diastolic volume 96 mL, pulmonary to myocardial count ratio 0.27, no transit ischemic dilatation. There is a mixed defect involving the apex. G. 01/16/2020 C end-diastolic pressure 5 mmHg, left main normal, LAD normal, left circumflex normal, RCA dominant and normal. H. 02/20/2020 CMR LVEF 50%, end-diastolic volume index 96 mL/m , perfusion pattern normal, no areas of delayed hyperenhancement, RVEF 51%, end-diastolic volume index 61 mL/m , the aorta was normal in size, no pericardial effusion. I. 04/22/2020 Echo EF 35 to 40%, end-diastolic dimension 5.0 cm, end-diastolic volume 110 mL with an index of 66 mL/m , RV size and function normal, no valvular stenosis, elevated right atrial pressure, unable to calculate peak pulmonary pressure. J. 04/21/2020 COMMUNITY SERVICE SPECIALIST-P placement with a Medtronic device. K. 04/26/2020 Echo EF 35%, end-diastolic dimension 5.2 cm, end-diastolic volume 149 mL with an index of 57 mL/m , RV size and function normal, pacer leads noted, nonspecific mitral valve thickening, aortic valve sclerosis without stenosis, elevated right atrial pressure, trivial pericardial effusion. L. 05/06/2020 Echo EF 40%, RV size and function normal, right-sided pacer leads noted, mild MR, aortic root normal in size, small pericardial effusion, no tamponade, peak pulmonary pressure 21 mmHg M. 07/13/2020 Echo EF 55%, RV size and function normal, pacer leads noted, trace MR, trace TR, aortic root normal in size, no pericardial effusion, peak pulmonary pressure 29 mmHg. N. 08/16/2020 Echo EF 55%, RV size and function normal, pacer leads noted, mild TR, small pericardial effusion. O. 08/17/2020 right atrial lead revision. P. 08/17/2020 Echo EF 65%, RV size and function normal, trace TR, normal right atrial pressure, small pericardial effusion. Q. 08/23/2020 Echo EF 60 to 65%, diastolic dysfunction, RV size and function normal, pacer leads noted, trace MR, mild TR, aortic root normal in size, small pericardial effusion, normal right atrial pressure, peak pulmonary pressure 34 mmHg. R. 08/26/2020 Echo EF 55%, RV size and function normal, elevated right atrial pressure, small pericardial effusion, no tamponade physiology. S. 06/01/2021 Echo EF 55 to 60%, RV size and function normal, pacer leads noted, normal right atrial pressure, valvular structures appeared normal, small pericardial effusion has resolved. T. 04/13/2022 Echo EF 55%, RV size and function normal, TTE valvular structures appeared normal, aortic root normal in size, no pericardial effusion. Assessment & Plan (11/27/2022 9:58 PM CDT): -Prior nonischemic cardiomyopathy which has normalized with BiV pacing and medical therapy. -Follow-up with cardiology Encounters Date Type Department Care Team Description 09/12/2024 Orders Only Family Medicine: [facility] [address] [place] [address] Karen Wilkins, DO Memory change (Primary Dx) 09/11/2024 Orders Only Family Medicine: [facility] [address] [place] [address] Karen Wilkins, DO 09/11/2024 Orders Only Family Medicine: [facility] [address] [place] [address] Karen Wilkins, DO 09/11/2024 Telephone Family Medicine: [facility] [address] [place] [address] Karen Wilkins, DO Medication Refill (sertraline); Referral (Neuropsych) 09/05/2024 Results Follow-Up Gastroenterology : [facility] [address], [address] [address] Eliana Johnson PA-C CALPROTECTIN, FECAL 09/01/2024 11:00 AM CDT Lab Only Lab, Draw Station: [facility] [address] [place] [address] Jaelyn Lal APRN-MANDI Elevated fecal calprotectin 09/01/2024 10:30 AM CDT Office Visit Cardiovascular Medicine: [facility], [facility] [address], [address] [place] [address] Angela Moore, JUAN-ORDER PROCESSOR Paroxysmal Afib 09/01/2024 10:00 AM CDT - 09/01/2024 11:59 PM CDT Hospital Encounter Cardiovascular Medicine: [facility], [facility] [address], [address] [place] [address] Angela Moore, SPEECH PATHOLOGIST ASSISTANT-ORDER PROCESSOR Discharge Disposition: Home or Self Care 09/01/2024 Travel 09/01/2024 Telephone Cardiovascular Medicine: [facility], Building [address] [place] [address] Jack Magana RN Scheduling 08/12/2024 Results Follow-Up Operating Room: [place] [phone] Mattie Brown MD SURGICAL PATHOLOGY, EGD REPORT, COLONOSCOPY 08/06/2024 3:00 PM CDT - 08/06/2024 3:45 PM CDT Surgery Operating Room: [place] [phone] Mattie Brown MD COLONOSCOPY DIAGNOSTIC WITH SPECIMEN COLLECTION BY BRUSHING/ WASHING - FLEXIBLE 08/06/2024 2:51 PM CDT Anesthesia Event Operating Room: [place] [phone] Emma Hammonds MD Lewis, Elizabeth A, EMPLOYMENT PROGRAMS ANALYST 08/06/2024 1:56 PM CDT - 08/06/2024 11:59 PM CDT Hospital Encounter Operating Room: [place] [phone] Mattie Brown MD Incontinence of feces, unspecified fecal incontinence type Discharge Disposition: Home or Self Care 07/31/2024 4:00 PM CDT Office Visit Family Medicine: [facility] [address] [place] [address] Karen Wilkins DO Superior mesenteric artery stenosis (HCC) (Primary Dx); Thyroid nodule; Dyslipidemia; Incontinence of feces, unspecified fecal incontinence type; Gastroesophageal reflux disease, unspecified whether esophagitis present; Dyspnea on exertion; Dysphagia, unspecified type; Mixed stress and urge urinary incontinence; Abnormal QT interval present on electrocardiogram 07/31/2024 Travel 07/24/2024 1:00 PM CDT Office Visit Telehealth Gastroenterology : [facility] [address], [address] [address] Jaelyn Lal R, SPEECH PATHOLOGIST ASSISTANT-ORDER PROCESSOR Diarrhea, unspecified type (Primary Dx); Elevated fecal calprotectin; Incontinence of feces with fecal urgency; Nocturnal diarrhea; Gastroesophageal reflux disease, unspecified whether esophagitis present; Belching; Epigastric pain 07/24/2024 8:23 AM CDT - 07/24/2024 11:59 PM CDT Hospital Encounter Cardiovascular Medicine: [facility] [address], [address] [place] [address] Fanny Mejia MD Discharge Disposition: Home or Self Care 07/24/2024 Travel 07/23/2024 5:15 PM CDT - 07/23/2024 11:59 PM CDT Hospital Encounter Cardiovascular Medicine Remote Device Check [phone] Discharge Disposition: Home or Self Care 07/16/2024 Telephone Endoscopy: [facility] [address] [place] [address] Nora Chavez 07/15/2024 Results Follow-Up Internal Medicine: [facility] [address], [place] [address] Kateryna Morales MD GIARDIA SCREEN,FECAL, LEUKOCYTES, FECAL, CRYPTOSPORIDIUM, FECAL, Additional followed-up results: 2 07/14/2024 Results Follow-Up Family Medicine: [facility] [address] [place] [address] Karen Wilkins DO C DIFFICILE BY PCR, OCCULT BLOOD COLON CANCER SCREEN, CALPROTECTIN, FECAL, PV MESENTERIC DUPLEX 07/12/2024 9:00 AM CDT Lab Only Lab, Draw Station: [facility] [address] [place] [phone] Karen Wilkins DO Chronic diarrhea; Incontinence of feces, unspecified fecal incontinence type; Lymphocytic colitis 07/12/2024 Travel 07/11/2024 9:00 AM CDT Office Visit Family Medicine: [facility] [address] [place] [address] Karen Wilkins DO Medicare annual wellness visit, subsequent (Primary Dx); Incontinence of feces, unspecified fecal incontinence type; Lymphocytic colitis; Superior mesenteric artery stenosis (HCC); Sebaceous cyst; Subjective memory complaints; Dyspnea on exertion 07/11/2024 Telephone Cardiovascular Medicine: [facility] [address] [place] [address] Jennifer Burnett BSN Cardiac Device Conditional MRI (Smart Sync) 07/11/2024 Travel 07/09/2024 11:30 AM CDT Anesthesia Event Cardiovascular Medicine: [facility] [address] [place] [address] Leon Salas MD 07/09/2024 9:29 AM CDT - 07/09/2024 11:59 PM CDT Hospital Encounter Cardiovascular Medicine: [facility] [address] [place] [phone] Key Osborne MD Garcia, Alicia, DAVE Bustamante, Adolph Kim MD Discharge Disposition: Home or Self Care 07/09/2024 9:00 AM CDT Office Visit Cardiovascular Medicine: [facility] [address] [place] [address] Paula Meeks APRN-CERTIFICATION ENGINEER Cardiac Eval 07/09/2024 Travel 06/27/2024 10:40 AM CDT Office Visit Family Medicine: [facility] [address], [place] [address] June Narayan MD Sebaceous cyst of skin of left breast (Primary Dx) 06/27/2024 Travel 06/26/2024 Nurse Triage Specialty Screening: [facility] [address] [place] [address] Karen Wilkins DO 06/24/2024 Documentation [facility]: [facility] [address], [address] [place] [address] Charly Crain, DAVE PRASHANT Pre-Procedure Instuctions 06/23/2024 Refill Family Medicine: [facility] [address] [place] [address] Fanny Mejia MD Subjective memory complaints 06/18/2024 9:06 AM CDT - 06/18/2024 11:59 PM CDT Hospital Encounter Imaging Ultrasound: [facility] [address] [place] [address] Fanny Mejia MD Discharge Disposition: Home or Self Care 06/18/2024 Results Follow-Up Imaging Ultrasound: [facility] [address] [place] [phone] Karen Wilkins, BREAST COMPLETE BILAT 06/18/2024 Travel from Last 3 Months Immunizations Immunization Administration Dates Next Due COVID-19 (MODERNA), mRNA vac c, 100 mcg/0.5 mL (PF) 07/01/2020 Flu Vaccine =>65 YO High-Dose (PF) 11/29/2023,,11/16/2017 Flu Vaccine =>65 YO High-Dos e Quadrivalent (PF) 01/30/2022,11/30/2020 Flu Vaccine Quadrivalent =>3 Yo (Preservative Free) 01/21/2021 Flu Vaccine, Quadrivalent, A djuvanted (Preservative Free) 02/14/2023 Pneumococcal Vaccine (20-Emi) 01/17/2022 Pneumococcal Vaccine (23-Emi Adult) 12/29/2020,0 09/20/2016 RSV bivalent vaccine (ABRYSVO) PF IM 02/11/2024 Tdap Vaccine 06/08/2022 Tetanus Vaccine 05/30/2011 Varicella-Zoster Vaccine - live (ZOSTAVAX) 09/18 Zoster Vaccine Recombinant, Adjuvanted (shingles) IM (vial 2 of 2)(SHINGRIX) 11/13/2018,11/16/2017 Surgical History Surgery Date Site/Laterality Comments APPENDECTOMY 04/02/1995 LEG TENDON SURGERY 04/02/2007 for detatched Hamstring HX VEIN STRIPPING 04/02/1993 HX CATARACT REMOVAL Right 2012 ELBOW FRACTURE SURGERY 06/28/2022 Arm Upper/Right OPEN TREATMENT WITH INTERNAL FIXATION ULNAR PROXIMAL END FRACTURE performed by Otis Liu MD at [facility] Medical devices from this surgery are in the Medical Devices section. PARTIAL HIP ARTHROPLASTY 06/28/2022 Hip/Right HEMIARTHROPLASTY HIP - PARTIAL performed by Otis Liu MD at [facility] Medical devices from this surgery are in the Medical Devices section. HX BREAST BIOPSY Bilateral Benign Excisional Bx PACEMAKER INSERTION 09/30/2020 - 10/30/2020 LEFT HEART CATHETERIZATION TRANSESOPHAGEAL ECHOCARDIOGRAM 07/09/2023 N/A TRANSESOPHAGEAL ECHOCARDIOGRAM DURING INTERVENTION performed by Key Osborne MD at [facility] EP LAB Medical devices from this surgery are in the Medical Devices section. ECHOCARDIOGRAM PROCEDURE ELECTROCARDIOGRAM EVENT MONITOR 05/26 CARDIOVASCULAR STRESS TEST Unsure HX TONSILLECTOMY Very young age. HX HEART CATHETERIZATION 2020 COLONOSCOPY Not sure HX EYE SURGERY COLONOSCOPY 08/06/2024 N/A COLONOSCOPY DIAGNOSTIC WITH SPECIMEN COLLECTION BY BRUSHING/ WASHING - FLEXIBLE performed by Mattie Brown MD at [place] [address] OR UPPER GASTROINTESTINAL ENDOSCOPY 08/06/2024 N/A ESOPHAGOGASTRODUODENOSCO PY WITH SPECIMEN COLLECTION BY BRUSHING/ WASHING performed by Mattie Brown MD at [place] [address] OR Medical History Medical History Date Comments HTN (hypertension) 11/22/2009 Chest pain 11/22/2009 Dyslipidemia 11/22/2009 Breast fibrocystic disorder 11/22/2009 Palpitations 11/23/2019 PVC (premature ventricular contraction) 01/13/2020 Cataract Cataract in righ t eye removed last year . Joint pain When I started medic ations for heart failure. Depression When heart failure w as addressed. Sometimes, mild 2020 Varicose veins Hyperlipidemia Fall multiple, some t raumatic w/fractures Atrial fibrillation (CMS-HCC) Cardiac dysrhythmia Sinus bradycardia HX: anticoagulation 04/2020 Generalized headaches Mild every now & then. Acid reflux unknown belching Allergy fall allergies Spring & fall al lergies Back pain Other malignant neoplasm wit hout specification of site several skin cancer sqaumas cell Accidental fall fell playing pickle ball GERD (gastroesophageal reflu x disease) many years Basal cell carcinoma About 5 yrs ago SCC (squamous cell carcinoma) About 5 yrs ago Family History Medical History Relation Comments None Reported Daughter Alcohol abuse Father Cancer Father Lung cancer 72 y rs passed 75 yrs SLE Maternal Aunt Cancer Maternal Grandmother Cancer-Breast Maternal Grandmother Diabetes Maternal Grandmother Arthritis Mother COPD Mother Colon Polyps Mother Depression Mother Hypertension Mother Neuropathy Mother Unknown to Patient Mother Asthma Sister 1 Autoimmune Disease Sister 1 Back pain Sister 1 Heart problem Sister 1 Scoliosis Sister 1 Coronary Artery Disease Sister 2 Heart Attack Sister 2 Kidney Disease Sister 2 Asthma Sister 3 Seizures Sister 3 Alcohol abuse Sister 4 Arthritis-rheumatoid Sister 4 Drug Abuse Sister 4 Heart Disease Sister 4 None Reported Son 1 None Reported Son 2 Relation Status Comments Daughter Alive Father Maternal Aunt Alive Maternal Grandmother Alive Mother Alive Sister 1 Alive Sister 2 Alive Sister 3 Alive Sister 4 Alive Son 1 Alive Son 2 Alive Social History Tobacco Use Types Packs/Day Years Used Date Smoking Tobacco: Former Cigarettes 0.5 10 1 4 - 1973 Smokeless Tobacco: Never Tobacco Cessation:Counseling Given: Not Answered Comments:I quit smoking in my late 20's. Alcohol Use Standard Drinks/Week Comments Not Currently 0 (1 standard drink = 0.6 oz pure alcohol) I quit drinking in May 1988 PHQ-2 Answer Date Recorded PHQ-2 Score 2 07/11/2024 Social Connections Answer Date Recorded Do you often feel that you lack companionship? N o 06/06/2024 Alcohol Use Answer Date Recorded Alcohol Use No 06/01/2021 Male: 9+ ounces (15+ Standard Drinks) per week T hreshold Not on file 06/01/2021 Female: 4.8+ ounces (8+ Standard Drinks) per wee k Threshold 0 06/01/2021 Financial Resource Strain Answer Date R ecorded In the last 12 months, has y [employer] shut off your service for not paying your bills? No 06/06/2024 Do problems getting childcar e make it difficult to work or study? No 06/06/2024 In the last 12 months, have you needed to see a doctor, but could not because of cost? No 06/06/2024 In the last 12 months, did you skip medications to save money? No 06/06/2024 Stress Answer Date Recorded Total Score: 0 07/11/2024 Food Insecurity Answer Date Recorded Within the past 12 months we worried whether our food would run out before we got money to buy more. Never True 06/06/2024 Within the past 12 months th e food we bought just didn't last and we didn't have money to get more. Never True 06/06/2024 Transportation Needs Answer Date Record ed In the past 12 months, have you ever gone without health care because you didn't have a way to get there? No 06/06/2024 Housing Stability Answer Date Recorded Are you worried that in the next 2 months, you may not have stable housing? No 06/06/2024 Health Literacy Answer Date Recorded Do you have problems underst anding what is told to you about your medical conditions? No 06/06/2024 Comments No Sex and Gender Information Value Date Recorded Sex Assigned at Female 11/21/2019 9:40 AM CDT Legal Sex Female 5:58 PM CDT Gender Identity Female 11/21/2019 9:40 AM CDT Sexual Orientation Straight 08/15/2020 8: 43 PM CDT Obstetrics History Para Term AB IAB SAB Ectopic Multiple Livin g Live Births 3 Last Filed Vital Signs Vital Sign Reading Time Taken Comments Blood Pressure 120/70 09/01/2024 10:50 AM CDT Pulse 74 09/01/2024 10:50 AM CDT Temperature 36.2 C (97.1 F) 08/06/2024 3:30 PM CDT Respiratory Rate 16 06/27/2024 10:48 AM CDT Oxygen Saturation 99% 09/01/2024 10:50 AM CDT Inhaled Oxygen Concentration - - Weight 59.5 kg (131 lb 3.2 oz) 09/01/2024 10:50 AM CDT Height 165.1 cm (5' 5) 09/01/2024 10:50 AM CDT Body Mass Index 21.83 09/01/2024 10:50 AM CDT Plan of Treatment Health Maintenance Due Date Last Done Comments BREAST CANCER SCREENING 05/06/2025 05/06/19, 04/24/2023, 02/28/2022, Additional history exists ADVANCE CARE PLANNING DISCUSSION AND DOCUMENTATION 07/11/2025 07/11/2024, 04/17/2023, 03/17/2022 COVID-19 VACCINE ( season) 2025 11/29/2023, 02/14/2023, 01/30/2022, Additional history exists Postponed from 05/30/2024 (Patient ill today) MEDICARE ANNUAL WELLNESS VISIT 07/11/2025 07/11/2024, 04/17/2023, 04/17/2023, Additional history exists DTAP/TDAP VACCINES (2 - Td or Tdap) 06/08/2032 06/08/2022 COLORECTAL CANCER SCREENING 08/06/2034 05/0 09/2024, 08/06/2024, 10/21/2015 SHINGLES RECOMBINANT VACCINE Completed 11/13/2018, 11/16/2017, 09/18/2012 HEPATITIS C SCREENING Completed 01/17/2022 PNEUMOCOCCAL VACCINE AGE 50 AND OVER Completed 01/17/2022, 12/29/2020, 09/20/2016 INFLUENZA VACCINE Completed 11/29/2023, , 01/30/2022, Additional history exists OSTEOPOROSIS SCREENING/MONITORING Completed 01/26/2024, 03/21/2022 RSV VACCINE (60 years and Older/ Women) Completed 02/11/2024 DEPRESSION SCREENING Completed 07/11/2024, 06/14/19 HPV VACCINES Aged Out No longer eligi ble based on patient's age to complete this topic MENINGOCOCCAL B VACCINE Aged Out No l onger eligible based on patient's age to complete this topic Goals Goal Patient Goal Type Associated Problems Recent Progress Patient-Stated? Author GOAL General On track( 023 11:07 AM CDT) No Gaby Batres RN Note: Not to fall Resume normal activities Hospital On track( 021 10:16 PM CDT) Yes Ellen May, DAVE Decrease pain Hospital On track( 021 10:17 PM CDT) No Garrett Torrez, SPEECH PATHOLOGIST ASSISTANT-ORDER PROCESSOR Note: Pt's pain will be under control while in the hospital. Medication Adherence Medication Adherence On track( 021 10:16 PM CDT) Josefina Hoyt RN Medical Devices Implanted Type Area Rail Car Operator Device Identifier Shelf Expiration Date Model / Serial / Lot Rv Pacemaker Lead-04/21/2020 Implanted:Qty: 1 on 04/21/2020 by Drew Martin MD Pacemaker Lead Left: Heart MEDTRONIC CARDIAC RHYTHM MNT 03/02/2022 [employer] MRI SURESCAN 3830-69CM / [id number] / Lv Pacemaker Lead-04/21/2020 Implanted:Qty: 1 on 04/21/2020 by Drew Martin MD Pacemaker Lead Left: Heart MEDTR[employer] CARDIAC RHYTHM MNT 02/01/2022 [employer] QUAD MRI SURESCAN 4798-88CM / [id number] / Ra Pacemaker Lead-08/17/2020 Implanted:Qty: 1 on 08/17/2020 by Drew Martin MD Pacemaker Lead Left: Heart [employer] [facility]ARDIAC [facility]HYTHM [facility] [employer] NOVUS MRI SURESCAN 5076-52CM / [id number] / Pacemaker-04/21 Implanted:Qty: 1 on 04/21/2020 by Drew Martin MD Pacemaker Left: Chest [employer] CARDIAC RHYTHM [facility] PERCEPTA QUAD COMMUNITY SERVICE SPECIALIST-P MRI SURESCAN [id number] / [id number] / Screw Bone 2.7mm 50mm Lcp Stainless Steel T8 Elbow Variable - Sna Implanted:Qty: 1 on 06/28/2022 by Otis Liu MD at [facility] Right: Ulna [employer] 02.211.050 / NA / NA Screw Bone 6.5mm 7.9mm 2.9mm 85mm 16mm Stainless Steel - Sn/A Implanted:Qty: 1 on 06/28/2022 by Otis Liu MD at [facility] [employer] 208.412 / N/A / N/A Screw Bone 12.7mm 95mm Dhs/Dcs Stainless Steel Hip Condyle - Sn/A Implanted:Qty: 1 on 06/28/2022 by Otis Liu MD at [facility] Right: Hip [employer] 280.295 / N/A / N/A Plate 135d Standard Barrel [id number] Stainless Steel 4.5mm - Sn/A Implanted:Qty: 1 on 06/28/2022 by Otis Liu MD at [facility] Right: Hip [employer] 281.102 / N/A / N/A Screw Bone 4.5mm 8mm 36mm Lcp Stainless Steel Periarticular - Sn/A Implanted:Qty: 1 on 06/28/2022 by Otis Liu MD at [facility] Right: Hip [employer] 214.836 / N/A / N/A Screw Bone 4.5mm 38mm Lc-Dcp Dhs Dcs Stainless Steel - Sn/A Implanted:Qty: 1 on 06/28/2022 by Otis Liu MD at [facility] Right: Hip [employer] 214.838 / N/A / N/A Plate 73mm Stainless St 2.7/3.5mm Scr 2 Hl Variable Rt - Sna Implanted:Qty: 1 on 06/28/2022 by Otis Liu MD at [facility] Right: Ulna [employer] 02.107.002 / NA / NA Screw Bone 3.5mm 26mm Lcp Stainless Steel Cortical Self - Sna Implanted:Qty: 1 on 06/28/2022 by Otis Liu MD at [facility] Right: Ulna [employer] 204.826 / NA / NA Screw Bone 3.5mm 28mm Dcp Lc-Dcp Stainless Steel Humerus - Sna Implanted:Qty: 1 on 06/28/2022 by Otis Liu MD at [facility] Right: Ulna [employer] 204.828 / NA / NA Screw Bone 2.7mm 10mm Lcp Stainless Steel T8 Elbow Variable - Sna Implanted:Qty: 1 on 06/28/2022 by Otis Liu MD at [facility] Right: Ulna [employer] .211.010 / NA / NA Screw Bone 2.7mm 46mm Lcp Stainless Steel T8 Elbow Variable - Sna Implanted:Qty: 1 on 06/28/2022 by Otis Liu MD at [facility] Right: Ulna [employer] .211.046 / NA / NA Watchman Flx Pro Left Atrial Appendage Closure Device 31mm - [id number] Implanted:Qty: 1 on 07/09/2023 by Key Osborne MD at [facility] [employer] [id number] 03/20/2026 [id number] / [id number] / [id number] Watchman Flx Pro Per Procedure Pricing - Sna Implanted:Qty: 1 on 07/09/2023 by Key Osborne MD at [facility] [employer] [id number] / NA / NA Procedures Procedure Name Priority Date/Time Associated Diagnosis Comments ECG 12-LEAD Routine 09/01/2024 10:47 AM CDT Screening for heart disease DEVICE EVALUATION - PPM (PERMANENT PACEMAKER) Routine 09/01/2024 10:24 AM CDT NICM (nonischemic cardiomyopathy) (CMS-HCC) PAF (paroxysmal atrial fibrillation) (CMS-HCC) Cardiac resynchronization therapy pacemaker (COMMUNITY SERVICE SPECIALIST-P) in place Hypertension, unspecified type Presence of Watchman left atrial appendage closure device PVC (premature ventricular contraction) HC CALPROTECTIN, FECAL Routine 8:10 AM CDT Elevated fecal calprotectin SURGICAL PATHOLOGY Routine 08/06/2024 3:02 PM CDT Incontinence of feces, unspecified fecal incontinence type Lymphocytic colitis Gastroesophageal reflux disease, unspecified whether esophagitis present Nocturnal diarrhea Diarrhea, unspecified type Elevated fecal calprotectin Colorectal polyps OR ESOPHAGOGASTRODUODENOSCOP Y TRANSORAL DIAGNOSTIC 08/06/2024 2:52 PM CDT Incontinence of feces, unspecified fecal incontinence type Lymphocytic colitis Gastroesophageal reflux disease, unspecified whether esophagitis present Diarrhea, unspecified type Elevated fecal calprotectin Nocturnal diarrhea Special Needs 07/29 SCHEDULED AT [facility] ON 08/06/2024 @ [address] SAAVEDRA [facility] 07/25 req by main to send orders [facility] 07/24/24 - Per Arrica (Via In Basket) - Add EGD to upcoming colonoscopy, add dx: GERD, diarrhea, elevated fecal calprotectin, nocturnal diarrh ea; change location to [facility] and provider to Dr. Brown.Referral # [id number] VC OR COLONOSCOPY FLX DX W/HERBER J SPEC WHEN PFRMD 08/06/2024 2:52 PM CDT Incontinence of feces, unspecified fecal incontinence type Lymphocytic colitis Gastroesophageal reflux disease, unspecified whether esophagitis present Diarrhea, unspecified type Elevated fecal calprotectin Nocturnal diarrhea Special Needs 07/29 SCHEDULED AT [facility] ON 08/06/2024 @ [address] [facility]RA [facility] 07/25 req by main to send orders [facility] 07/24/24 - Per Arrica (Via In Basket) - Add EGD to upcoming colonoscopy, add dx: GERD, diarrhea, elevated fecal calprotectin, nocturnal diarrh ea; change location to [facility] and provider to Dr. Brown.Referral # [id number] VC EGD REPORT 08/06/2024 7:22 AM CDT COLONOSCOPY 08/06/2024 7:21 AM CDT DEVICE EVALUATION - REMOTE PPM CHARGES Routine 07/29/2024 5:15 PM CDT NICM (nonischemic cardiomyopathy) ([facility]) PAF (paroxysmal atrial fibrillation) ([facility]) Cardiac resynchronization therapy pacemaker (COMMUNITY SERVICE SPECIALIST-P) in place Hypertension, unspecified type Presence of Watchman left atrial appendage closure device PVC (premature ventricular contraction) PV MESENTERIC DUPLEX Routine 07/24/2024 9:03 AM CDT Superior mesenteric artery stenosis (HCC) HC CALPROTECTIN, FECAL Routine 9:00 PM CDT Incontinence of feces, unspecified fecal incontinence type Lymphocytic colitis CULTURE-FECES W/SENSITIVITY Routine 07/01 9:00 PM CDT Chronic diarrhea SHIGA TOXINS EIA Routine 07/11/2024 9:00 PM CDT Chronic diarrhea HC OCCULT BLD COLON CANCER SCRN Routine 07/11/2024 9:00 PM CDT Incontinence of feces, unspecified fecal incontinence type Lymphocytic colitis HC C DIFFICILE BY PCR Routine 07/11/2024 9:00 PM CDT Incontinence of feces, unspecified fecal incontinence type Lymphocytic colitis HC CRYPTOSPORIDIUM SCREEN Routine 2024 9:00 PM CDT Chronic diarrhea HC LEUKOCYTES-FECAL Routine 07/11/2024 9:00 PM CDT Chronic diarrhea HC GIARDIA AG Routine 07/11/2024 9:00 PM CDT Chronic diarrhea STOOL CULTURE Routine 07/11/2024 9:00 PM CDT Chronic diarrhea PRASHANT W/O CONTRAST Routine 07/09/2024 11:56 AM CDT Presence of Watchman left atrial appendage closure device PAF (paroxysmal atrial fibrillation) ([facility]) ECG 12-LEAD Routine 07/09/2024 9:06 AM CDT Screening for heart disease US BREAST COMPLETE BILAT Routine 025 9:35 AM CDT Breast nodule MAMMO SCREEN BILAT/DINO Routine 05/06/19 25 10:34 AM SPINNER HYDRAULIC Visit for screening mammogram BONE DENSITY SPINE/HIP Routine 2:12 PM CDT Screening for osteoporosis HC HEPATITIS C IRMA Routine 01/17/2022 2:20 PM CDT Need for hepatitis C screening test from Last 3 Months or Most Recently Relevant to Health Maintenance Results * ECG 12-LEAD (09/01/2024 10:47 AM CDT) VENTRICULAR RATE 74 BPM GE MUSE P-R INTERVAL 196 ms GE MUSE QRS DURATION 102 ms GE MUSE Q-T INTERVAL 416 ms GE MUSE QTC CALCULATION (BAZETT) 462 ms GE MUSE P AXIS degrees GE MUSE R AXIS 80 degrees GE MUSE T AXIS 14 degrees GE MUSE 09/01/2024 10:4 7 AM CDT 09/01/2024 6:31 PM CDT Impressions GE MUSE - 09/01/2024 6:32 PM CDT Atrial-paced rhythm ventricular paced complex. Cannot rule out Lateral infarct (cited on or before 10-Jul-2023) Confirmed by Abigail Aguilar ([id number]) on 09/01/2024 6:31:59 PM Narrative Procedure Note Abigail Aguilar MD - 09/01/2024 IMPRESSION Atrial-paced rhythm ventricular paced complex. Cannot rule out Lateral infarct (cited on or before 10-Jul-2023) Confirmed by Abigail Aguilar ([id number]) on 09/01/2024 6:31:59 PM Angela Moore SPEECH PATHOLOGIST ASSISTANT-ORDER PROCESSOR ECG ORDERABLES Final Res ult GE MUSE * DEVICE EVALUATION - PPM (PERMANENT PACEMAKER) (09/01/2024 10:24 AM CDT) Pathologist [facility] Atrial Lead Diaph. Stimulation N/A MURJ LV Lead Configuration Other LV2->LV3 MURJ Atrial Lead Model # CAPSUREFIX NOVUS MRI SURESCAN 5076-52CM MURJ Atrial Lead Serial # [id number] MURJ Atrial Lead Implant Date 08/17/2020 MURJ RV Lead Model # SELECTSECURE MRI SURESCAN 3830-69CM MURJ RV Lead Serial # [id number] MURJ RV Lead Implant Date 04/21/2020 MURJ LV Lead Model # ATTAIN STABILITY QUAD MRI SURESCAN 4798-88CM MURJ LV Lead Serial # [id number] MURJ LV Lead Implant Date 04/22/2020 MURJ Device Type COMMUNITY SERVICE SPECIALIST-P MURJ Generator Rail Car Operator angelMDtronic MURJ Generator Serial # [id number] MURJ Generator Model # Percepta Quad COMMUNITY SERVICE SPECIALIST-P [id number] MURJ Generator Implnat Date 20200421 MURJ ENCOUNTER SUMMARY This report includes 1 transmission that was received on 2024-09-01. Battery was reviewed. MURJ EP DEVICE PATIENT NOTES Atrially dependent. 05/01/23 appt to discuss watchman. 08/17/20 RA lead revision by RRR (out pt med list now shows Eliquis but is not currently listed on IP med list)kk 08/13/20: NEW AFIB. MURJ Pacemaker Dependant yes MURJ On Anticoagulation no MURJ EP SYSTEM MRI CONDITIONAL yes MURJ PLAN Routine in-office follow up and as needed. MURJ BATTERY VOLTAGE 2.980 MURJ A PACING % 99.70 % MURJ RV PACING % 98.21 % MURJ LV PACING % 96.97 % MURJ YUMIKO MODE DDDR MURJ Lead Placement LV - null Right Ventricle - Connected Right Atrium - Connected Left Ventricle - Connected MURJ Anatomical Region Laterality Modality MAC CV Heart Rhy thm 09/01/2024 10:4 5 AM CDT Narrative 09/02/2024 6:13 AM CDT Title: In-Office Device Check * 09/01/24 Full Check * Normal Device Function * Alerts or events: 1 * Battery: Battery is at OK, 7.1 yrs * Sensing, impedance and thresholds reviewed and tested (Lead function reviewed) * Presenting Rhythm: AP-LVP 90 bpm * Underlying Rhythm: AP-VS 30's bpm, atrially dependent * Heart Rate Histograms appropriate rate distribution * AP 99.7% effective COMMUNITY SERVICE SPECIALIST 98% Title: Heart Failure Diagnostic: Stable * Heart failure diagnostics assessed through the device * Status: Stable * No overt HF present Title: Ventricular Sensing Episodes * VSE Marker channels are suggestive of intrinsic conduction * Total episodes: 1050 since 10/09/23 * Average minutes/day: Most recent 08/30/24 Title: Tachycardia: AT * Stored EGMs are consistent with or suggestive of Atrial Tachycardia * AT [place]: % * Total number of episodes: 1 * Device labelled as NSVT is suggestive of AT with 1:1 conduction seen on EGM us Angela Moore SPEECH PATHOLOGIST ASSISTANT-ORDER PROCESSOR HEART RHYTHM MANAGEMENT O RDERABLES Final Result * (ABNORMAL) CALPROTECTIN, FECAL (09/01/2024 8:10 AM CDT) Only the most recent of2 resultswithin the time period is included. Calprotectin, Fecal 193(H) <=49 ug/g 09/05/2024 12:38 AM CDT [facility] Comment: REFERENCE INTERVAL: Calprotectin, Fecal by Immunoassay Less than 50 ug/g........Normal 50-120 ug/g..............Borderline elevated, test should be re-evaluated in 4-6 weeks. 121 ug/g or greater......Elevated Performed By: [employer] [address] [place] [address] Shipping Supervisor: Bean Dillon MD, PhD CLIA Number: [id number] Feces FECES / Unknown Non-blood Collection / Unknown 09/01/2024 8:10 AM CDT 09/01/2024 10:10 AM CDT Jaelyn Lal SPEECH PATHOLOGIST ASSISTANT-ORDER PROCESSOR FLUID ORDERABLES Final Re sult [address] [address] * SURGICAL PATHOLOGY (08/06/2024 3:02 PM CDT) Final Diagnosis A. Squamous mucosa, esophageal condyloma bx, biopsy: Benign squamous papilloma. B. Colonic mucosa, transverse polyp, biopsy: Prominent lymphoid aggregate. Attestation: By this signature, I attest that I have personally formulated the final interpretation expressed in this report and that the above diagnosis is based upon my examination of the slides and/or other material indicated in this report. 08/08/2024 3:31 PM CDT [facility] DEPT PATH AND LAB MEDICINE at 1531 CDT Gross Description A. Fixative: Formalin Labeled: Esophageal condyloma biopsy Number of pieces: 2 Description: gonzales-White tissue Dimensions: 0.3 x 0.2 x 0.1 cm aggregate, 0.2-0.3 cm range All in A1. (cg) B. Fixative: Formalin Labeled: Transverse polyp Number of pieces: 1 Description: gonzales-brown tissue Dimensions: 0.4 x 0.1 x 0.1 cm All in B1. () 08/08/2024 3:31 PM CDT [facility] DEPT PATH AND LAB MEDICINE Other Information Testing performed at [facility], [address] [place] [address]. [facility] #[id number]. 08/08/2024 3:31 PM CDT [facility] PATH AND LAB MEDICINE Tissue SPECIMEN FROM ESOPHAGUS / Unknown 08/06/2024 3:02 PM CDT 08/07/2024 7:17 AM CDT Tissue specimen (specimen) SPECIMEN FROM COLON / Unknown 08/06/2024 3:19 PM CDT 08/07/2024 7:17 AM CDT us Mattie Brown MD [facility] BKR PATH/CYTO ORD Final Result [facility] PATH AND LAB MEDICINE [address] [place] [address], * EGD REPORT (08/06/2024 7:22 AM CDT) Provation Report [facility] ___ Patient Name: Emanuel Trevino Procedure Date: 08/06/2024 7:22 AM CSN: [id number] Date of : 1950 Gender: Female Attending Physician: Mattie Brown MD, [id number] ___ Procedure: Upper GI endoscopy Indications: Suspected esophageal reflux Providers: Mattie Brown MD (Doctor), Derrek Huang (Nurse), Deborah Pollard (Nurse), Vianney Goins (Supervisor Shipping) Referring Physician: Fanny Mejia (Referring MD) Medications: Monitored Anesthesia Care Complications: No immediate complications. ___ Procedure: Pre-Anesthesia Assessment: - Prior to the procedure, a History and Physical was performed, and patient medications and allergies were reviewed. The patient's tolerance of previous anesthesia was also reviewed. The risks and benefits of the procedure and the sedation options and risks were discussed with the patient. All questions were answered, and informed consent was obtained. Prior Anticoagulants: The patient has taken no anticoagulant or antiplatelet agents. ASA Grade Assessment: II - A patient with mild systemic disease. After reviewing the risks and benefits, the patient was deemed in satisfactory condition to undergo the procedure. After obtaining informed consent, the endoscope was passed under direct vision. Throughout the procedure, the patient's blood pressure, pulse, and oxygen saturations were monitored continuously. The Endoscope was introduced through the mouth, and advanced to the second part of duodenum. The upper GI endoscopy was accomplished without difficulty. The patient tolerated the procedure well. A computer-assisted device with artificial intelligence ([email or web address]) designed to detect polyps was used during the exam. Imaging was performed using zoom magnification, white light and narrow band imaging to visualize the mucosa. Findings: Esophagogastric landmarks were identified: the lower esophageal sphincter was found at 40 cm and the site of hiatal narrowing was found at 41 cm from the incisors. irregular Z line. The gastroesophageal flap valve was visualized endoscopically and classified as Hill Grade III (minimal fold, loose to endoscope, hiatal hernia likely). The examined esophagus was normal. The entire examined stomach was normal. The duodenal bulb, first portion of the duodenum and second portion of the duodenum were normal. A 1 cm hiatal hernia was present. A single 5 mm suspicious for condyloma nodule with a localized distribution was found in the middle third of the esophagus, 30 cm from the incisors. The nodule was Sapphire classification Is (protruding, sessile). Biopsies were taken with a cold forceps for histology. Impression: OTHER - Gastroesophageal flap valve classified as Hill Grade III (minimal fold, loose to endoscope, hiatal hernia likely). - Normal esophagus. - Normal stomach. - Normal duodenal bulb, first portion of the duodenum and second portion of the duodenum. - 1 cm hiatal hernia. 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 Biopsied. Estimated Blood Loss: Estimated blood loss: none. Recommendation: - Patient has a contact number available for emergencies. The signs and symptoms of potential delayed complications were discussed with the patient. Return to normal activities tomorrow. Written discharge instructions were provided to the patient. - Resume previous diet. - Continue present medications. - Return to referring physician. - Await pathology results. Scope In: 2:59:04 PM Scope Out: 3:03:28 PM Total Procedure Duration Time 0 hours 4 minutes 24 seconds Procedure Code(s): --- Professional --- 38710, Esophagogastroduode noscopy, flexible, transoral; with biopsy, single or multiple Diagnosis Code(s): --- Professional --- K44.9, Diaphragmatic hernia without obstruction or gangrene K22.89, Other specified disease of esophagus CPT copyright 2021 [employer]. All rights reserved. The codes documented in this report are preliminary and upon vice president of news review may be revised to meet current compliance requirements. Attending Participation: I personally performed the entire procedure. Mattie Brown MD Mattie Brown MD 08/06/2024 3:05:59 PM The attending physician has electronically signed and finalized this document. Number of Addenda: 0 Note Initiated On: 08/06/2024 7:22 AM NAVA OTHER RESULTS Anatomical Region Laterality Modality Other 08/06/2024 7:22 AM CDT us Fanny Mejia MD GI ENDOSCOPY ORDERABLES Final Result * COLONOSCOPY (08/06/2024 7:21 AM CDT) Provation Report [facility] Patient Name: Emanuel Trevino Procedure Date: 08/06/2024 7:21 AM CSN: [id number] Date of : 1950 Gender: Female Attending Physician: Mattie Brown MD, [id number] Procedure: Colonoscopy Indications: Screening for colorectal malignant neoplasm, Last colonoscopy 10 years ago Providers: Mattie Brown MD (Doctor), Derrek Huang (Nurse), Deborah Pollard (Nurse), Vianney Goins (Supervisor Shipping) Referring Physician: Fanny Mejia (Referring ) Medications: Monitored Anesthesia Care Complications: No immediate complications. Procedure: Pre-Anesthesia Assessment: - Prior to the procedure, a History and Physical was performed, and patient medications and allergies were reviewed. The patient's tolerance of previous anesthesia was also reviewed. The risks and benefits of the procedure and the sedation options and risks were discussed with the patient. All questions were answered, and informed consent was obtained. Prior Anticoagulants: The patient has taken no anticoagulant or antiplatelet agents. ASA Grade Assessment: II - A patient with mild systemic disease. After reviewing the risks and benefits, the patient was deemed in satisfactory condition to undergo the procedure. After I obtained informed consent, the scope was passed under direct vision. Throughout the procedure, the patient's blood pressure, pulse, and oxygen saturations were monitored continuously. The Colonoscope was introduced through the anus and advanced to the cecum, identified by appendiceal orifice and ileocecal valve. The colonoscopy was performed without difficulty. The patient tolerated the procedure well. The ileocecal valve, appendiceal orifice, and rectum were photographed. The quality of the bowel preparation was good. The colonoscope was fitted with a clear cap to better visualize the lumen folds. A computer-assisted device with artificial intelligence ([email or web address]) designed to detect polyps was used during the exam. Imaging was performed using Olympus dual focus, white light and narrow band imaging to visualize the mucosa. Findings: The colon (entire examined portion) appeared normal. The terminal ileum appeared normal. A 3 mm polyp was found in the transverse colon. The polyp was sessile. The polyp was removed with a cold biopsy forceps. Resection and retrieval were complete. Impression: - The entire examined colon is normal. - The examined portion of the ileum was normal. - One 3 mm polyp in the transverse colon, removed with a cold biopsy forceps. Resected and retrieved. Estimated Blood Loss: Estimated blood loss was minimal. Recommendation: - Patient has a contact number available for emergencies. The signs and symptoms of potential delayed complications were discussed with the patient. Return to normal activities tomorrow. Written discharge instructions were provided to the patient. - Resume previous diet. - Continue present medications. - Repeat colonoscopy date to be determined after pending pathology results are reviewed for surveillance. - Await pathology results. Scope In: 3:07:14 PM Scope Out: 3:23:36 PM Scope Withdrawal Time 0 hours 9 minutes 37 seconds Total Procedure Duration Time 0 hours 16 minutes 22 seconds Procedure Code(s): --- Professional --- 03137, Colonoscopy, flexible; with biopsy, single or multiple Diagnosis Code(s): --- Professional --- Z12.11, Encounter for screening for malignant neoplasm of colon D12.3, Benign neoplasm of transverse colon (hepatic flexure or splenic flexure) CPT copyright 2021 [employer]. All rights reserved. The codes documented in this report are preliminary and upon vice president of news review may be revised to meet current compliance requirements. Attending Participation: I was present and participated during the entire procedure, including non-cahvez portions. Mattie Brown MD _ Mattie Brown MD 08/06/2024 3:27:25 PM The attending physician has electronically signed and finalized this document. Number of Addenda: 0 Note Initiated On: 08/06/2024 7:21 AM KU OTHER RESULTS Anatomical Region Laterality Modality Other 08/06/2024 7:21 AM CDT Fanny Mejia MD GI ENDOSCOPY ORDERABLES Final Result * DEVICE EVALUATION - REMOTE PPM CHARGES (07/29/2024 5:15 PM CDT) Atrial Lead Diaph. Stimulation N/A MURJ LV Lead Configuration Other LV2->LV3 MURJ Atrial Lead Model # CAPSUREFIX NOVUS MRI SURESCAN 5076-52CM MURJ Atrial Lead Serial # [id number] MURJ Atrial Lead Implant Date 08/17/2020 MURJ RV Lead Model # SELECTSECURE MRI SURESCAN 3830-69CM MURJ RV Lead Serial # [id number] MURJ RV Lead Implant Date 04/21/2020 MURJ LV Lead Model # ATTAIN STABILITY QUAD MRI SURESCAN 4798-88CM MURJ LV Lead Serial # [id number] MURJ LV Lead Implant Date 04/22/2020 MURJ Device Type COMMUNITY SERVICE SPECIALIST-P MURJ Generator Rail Car Operator Medtronic MURJ Generator Model # Percepta Quad COMMUNITY SERVICE SPECIALIST-P [id number] MURJ Generator Serial # [id number] MURJ Generator Implnat Date 20200421 MURJ ENCOUNTER SUMMARY This report includes 1 transmission that was received on 2024-07-23. Battery was reviewed. MURJ EP DEVICE PATIENT NOTES Atrially dependent. 05/01/23 appt to discuss watchman. 08/17/20 RA lead revision by RRR (out pt med list now shows Eliquis but is not currently listed on IP med list)kk 08/13/20: NEW AFIB. MURJ Pacemaker Dependant yes MURJ On Anticoagulation no MURJ EP SYSTEM MRI CONDITIONAL yes MURJ PLAN Routine remote and in-office follow up as needed MURJ BATTERY REMAINING LONGEVITY 88.0 months MURJ BATTERY VOLTAGE 2.980 MURJ A PACING % 99.74 % MURJ RV PACING % 2.82 % MURJ LV PACING % 98.20 % MURJ A PACING % 2.79 % MURJ YUMIKO MODE DDDR MURJ Lead Placement LV - null Right Ventricle - Connected Right Atrium - Connected Left Ventricle - Connected MURJ BATTERY REMAINING LONGEVITY YEARS 7.33 years MURJ Anatomical Region Laterality Modality MAC CV Heart Rhy thm 07/23/2024 5:13 PM CDT Narrative 07/24/2024 6:08 AM CDT Title: Remote Check * Device Interrogation Reviewed by technical staff; 07/22/24 * Battery: 7.33 yrs * Presenting rhythm: AP-CERTIFIED MEETING PROFESSIONAL 70 bpm * Sensing, impedance and thresholds reviewed/stable * Programmed parameters reviewed * Heart Rate Histograms reviewed * AP 99.7% CERTIFIED MEETING PROFESSIONAL 98.2% Effective COMMUNITY SERVICE SPECIALIST 98.1% Title: Heart Failure Diagnostic: Stable * Heart failure diagnostics assessed through the device * Status: Stable Title: Ventricular Sensing Episodes * VSE Marker channels are suggestive of Intrinsic conduction/PVCs * Total episodes: 246 * Average minutes/day: 3.6 * Last episode: 07/22/24 @ 1215 for 1 min 49 sec * Max V rates: 100-102 bpm us Angela Moore SPEECH PATHOLOGIST ASSISTANT-ORDER PROCESSOR HEART RHYTHM MANAGEMENT O RDERABLES Final Result * PV MESENTERIC DUPLEX (07/24/2024 9:03 AM CDT) ABDOMINAL DIST AORTA JIA 0.80 m/s OTHER OUTSIDE LAB ABDOMINAL DIST AORTA AP 1.64 cm OTHER OUTSIDE LAB ABDOMINAL DIST AORTA TRANS 1.70 cm OTHER OUTSIDE LAB ABDOMINAL MID AORTA AP 1.88 cm OTHER OUTSIDE LAB ABDOMINAL MID AORTA TRANS 2.01 cm OTHER OUTSIDE LAB ABDOMINAL PROX AORTA AP 2.10 cm OTHER OUTSIDE LAB ABDOMINAL PROX AORTA TRANS 1.91 cm OTHER OUTSIDE LAB ABDOMINAL PROX AORTA JIA 0.54 m/s OTHER OUTSIDE LAB ABDOMINAL MID AORTA JIA 0.55 m/s OTHER OUTSIDE LAB Cardiology Ultrasound Machine [employer] OTHER OUTSIDE LAB SMA PROX VELOCITY 1.07 m/s OTHER OUTSIDE LAB SMA MID VELOCITY 2.68 m/s OTHER OUTSIDE LAB SMA DIST VELOCITY 1.19 m/s OTHER OUTSIDE LAB CELIAC AXIS VELOCITY 1.31 m/s OTHER OUTSIDE LAB DILEEP ORIGIN VELOCITY 3.44 m/s OTHER OUTSIDE LAB Anatomical Region Laterality Modality Ultrasound Narrative 07/24/2024 5:32 PM CDT Mildly ectatic abdominal aorta without aneurysm or hemodynamically significant stenosis 2. There is elevated velocity and flow turbulence in the mid superior mesenteric artery, it did not fully meet criteria for >70% stenosis. Clinical correlation is advised, if high clinical concern consider CT with contrast 3. Elevated velocity in the inferior mesenteric artery that meets criteria for >70% stenosis. No prior study in our system available for comparison. Fanny Mejia MD PERIPHERAL VASCULAR ORDERABLES Final Result * C DIFFICILE BY PCR (07/11/2024 9:00 PM CDT) Pathologist [facility] C Diff Toxin PCR Negative Negative, Test Invalid 07/12/2024 3:06 PM CDT [facility] DEPT PATH AND LAB MEDICINE TEVIN Feces FECES / Unknown Non-blood Collection / Unknown 07/11/2024 9:00 PM CDT 07/12/2024 9:05 AM CDT Fanny Mejia MD MICROBIOLOGY ORDERABLES Final Result [facility] PATH [facility] LAB MEDICINE TEVIN [address] [place] [address], * SHIGA TOXINS EIA (07/11/2024 9:00 PM CDT) Pathologist [facility] SHIGA TOXIN 1 Not Detected 5 3:27 PM CDT [facility] DEPT PATH AND LAB MEDICINE TEVIN SHIGA TOXIN 2 Not Detected 5 3:27 PM CDT [facility] DEPT PATH AND LAB MEDICINE MB Feces FECES / Unknown Non-blood Collection / Unknown 07/11/2024 9:00 PM CDT 07/12/2024 9:05 AM CDT Kateryna Morales MD MICROBIOLOGY ORDERABLES Final Re sult Performing Organization Address [facility]/ZIP Co de Phone Number [facility] PATH AND LAB MEDICINE MB [address] [place] [address], [place] * OCCULT BLOOD COLON CANCER SCREEN (07/11/2024 9:00 PM CDT) Occult Blood Hemoccult Negative Negative, Test Invalid 07/12/2024 2:00 PM CDT [facility] PATH AND LAB MEDICINE Feces FECES / Unknown Non-blood Collection / Unknown 07/11/2024 9:00 PM CDT 07/12/2024 9:05 AM CDT Fanny Mejia MD MICROBIOLOGY ORDERABLES Final Result Performing Organization Address [facility] Co de Phone Number [facility] PATH AND LAB MEDICINE MB [address] [place] [address], [place] * LEUKOCYTES, FECAL (07/11/2024 9:00 PM CDT) FECAL LEUKOCYTES Negative Negative, Test Invalid 07/12/2024 2:00 PM CDT [facility] PATH AND LAB MEDICINE MB Feces FECES / Unknown Non-blood Collection / Unknown 07/11/2024 9:00 PM CDT 07/12/2024 9:05 AM CDT Kateryna Morales MD MICROBIOLOGY ORDERABLES Final Re sult Performing Organization Address [facility] Co de Phone Number [facility] PATH AND LAB MEDICINE MB [address] [place] [address], [place] * GIARDIA SCREEN,FECAL (07/11/2024 9:00 PM CDT) Giardia EIA Negative Negative, Test Invalid 07/12/2024 2:00 PM CDT [facility] PATH AND LAB MEDICINE Feces FECES / Unknown Non-blood Collection / Unknown 07/11/2024 9:00 PM CDT 07/12/2024 9:05 AM CDT us Kateryna Morales MD MICROBIOLOGY ORDERABLES Final Re sult [facility] PATH AND LAB MEDICINE [address] [place] [address], [place] * CULTURE-FECES W/SENSITIVITY (07/11/2024 9:00 PM CDT) Stool Culture No Salmonella, Shigella, Campylobacter, Aeromonas, Plesiomonas 07/15/2024 11:05 AM CDT [facility] PATH AND LAB MEDICINE Feces FECES / Unknown Non-blood Collection / Unknown 07/11/2024 9:00 PM CDT 07/12/2024 9:05 AM CDT Kateryna Morales MD MICROBIOLOGY ORDERABLES Final Re sult Performing Organization Address City/[facility]/ZIP Co de Phone Number [facility] PATH AND LAB MEDICINE MB [address] [place] [address], [place] * CRYPTOSPORIDIUM, FECAL (07/11/2024 9:00 PM CDT) Cryptosporidium Negative Negative, Test Invalid 07/12/2024 2:00 PM CDT [facility] PATH AND LAB MEDICINE Feces FECES / Unknown Non-blood Collection / Unknown 07/11/2024 9:00 PM CDT 07/12/2024 9:05 AM CDT us Kateryna Morales MD MICROBIOLOGY ORDERABLES Final Re sult 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 Normal biventricular size and systolic function. LVEF 55 % by visual estimate Mild mitral and tricuspid valve regurgitation No evidence of intracardiac shunting by color Doppler Left Ventricle The left ventricular size is normal. The left ventricular systolic function is normal. Right Ventricle The right ventricular size is normal. The right ventricular systolic function is normal. Pacemaker lead present in the ventricle. Left Atrium Mildly dilated. There is no color evidence of PFO or residual flow across the interatrial septum from the prior transseptal puncture. 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 Pacemaker lead present in the right atrium. Mitral Valve Normal valve structure. No stenosis. Mild regurgitation. Tricuspid Valve Normal valve structure. No stenosis. Mild regurgitation. Aortic Valve Normal valve structure. No stenosis. No regurgitation. Pericardium No pericardial effusion. Pulmonary Normal valve structure. No stenosis. No regurgitation. Aorta Plaque present in the descending aorta. The plaque is small. Key Field MD ECHO ORDERABLES Final Result * ECG 12-LEAD (07/09/2024 9:06 AM CDT) VENTRICULAR RATE 71 BPM GE MUSE P-R INTERVAL 198 ms GE MUSE QRS DURATION 106 ms GE MUSE Q-T INTERVAL 450 ms GE MUSE QTC CALCULATION (BAZETT) 490 ms GE MUSE P AXIS degrees GE MUSE R AXIS 82 degrees GE MUSE T AXIS 7 degrees GE MUSE 07/09/2024 9:06 AM CDT 07/09/2024 4:06 PM CDT Impressions GE MUSE - 07/09/2024 4:06 PM CDT Atrial-paced rhythm Cannot rule out Lateral infarct Nonspecific intraventricular conduction delay Confirmed by Abigail Aguilar ([id number]) on 07/09/2024 4:06:29 PM Narrative Procedure Note Abigail Aguilar MD - 07/09/2024 IMPRESSION Atrial-paced rhythm Cannot rule out Lateral infarct Nonspecific intraventricular conduction delay Confirmed by Abigail Aguilar ([id number]) on 07/09/2024 4:06:29 PM us Paula Beverly Constantino SPEECH PATHOLOGIST ASSISTANT-CERTIFICATION ENGINEER ECG ORDERABLES Final Res ult One Month MUSE * US BREAST COMPLETE BILAT (06/18/2024 9:35 AM CDT) Anatomical Region Laterality Modality Breast Bilateral Ultrasound Impressions 06/18/2024 9:42 AM CDT : No suspicious abnormality is identified in either breast. In the left breast at 730, 6 cm from the nipple there is a benign epidermal inclusion cyst measuring 0.7 x 0.9 x 0.9 cm corresponding to the CT finding. ASSESSMENT: Left: 2 - Benign Right: 1 - Negative Overall: 2 - Benign RECOMMENDATION AND DUE DATE: Return to Annual Screening Mammogram - Bilateral 05/06/2025 Electronically signed and approved by: Brenda Snyder MD 06/18/2024 9:41 AM Narrative 06/18/2024 9:42 AM CDT [facility] [place] Imaging Ultrasound: [place], [place] [id number] EXAM: US BREAST COMPLETE BILAT 06/18/24 9:35 AM INDICATION: 74-year-old woman presents for dense breast supplemental screening as well as evaluation of a recent CT chest finding. COMPARISON: Compared to: 05/30/2023 US HAND-HELD COMPLETE BREAST SCR FEDERICO 05/06/2024 MAMMO SCREEN BILAT/DINO 06/15/2024 CT CHEST WO CONTRAST TECHNIQUE: Targeted left handheld breast ultrasound was performed by a energy management specialist. FINDINGS/ us Fanny Mejia MD US ORDERABLES Final Result * MAMMO SCREEN BILAT/DINO (05/06/2024 10:34 AM [employer]) Anatomical Region Laterality Modality Breast Bilateral Mammography Impressions 05/06/2024 10:56 AM SP[employer] : ASSESSMENT: Overall: 1 - Negative RECOMMENDATION AND DUE DATE: Routine Screening Mammogram in 1 Year - Bilateral 05/08/2025 Electronically signed and approved by: Jacinda Humphries MD 05/06/2024 10:55 AM By my electronic signature, I attest that I have personally reviewed the images for this examination and formulated the interpretations and opinions expressed in this report Narrative 05/06/2024 10:56 AM SP[employer]NER [employer] [facility] Imaging Mammography: [place], [address] [id number] EXAM: MAMMO SCREEN BILAT/DINO 05/06/24 10:34 AM INDICATION: Screening COMPARISON: Compared to: 06/30/2015 MAMMO DIAG EXTERNAL IMAGING 02/28/2022 MAMMO SCREEN BILAT/DINO 04/24/2023 MAMMO SCREEN BILAT/DINO (OPEN SCHED) BREAST COMPOSITION: The breasts are heterogeneously dense, which may obscure small masses. Your mammogram shows that you have dense breast tissue. This is a normal finding. However, dense breast tissue makes cancer more difficult to find on mammogram and increases risk for breast cancer. Supplemental screening exams may find additional cancers in dense breast tissue. We offer ultrasound, abbreviated MRI, or contrast-enhanced mammogram for patients with dense breast tissue to supplement annual screening mammogram. MRI and contrast-enhanced mammogram require placement of an IV to give contrast. To schedule one of these exams, please contact your doctor's office for an order, then call [phone] to schedule. TECHNIQUE: 3-D (digital tomosynthesis) and synthetic 2-D images were obtained bilaterally. FINDINGS: No suspicious abnormality is seen. us Ana Dumont SPEECH PATHOLOGIST ASSISTANT-ORDER PROCESSOR MAMMO ORDERABLES Fin al Result * BONE DENSITY SPINE/HIP (01/26/2024 2:12 PM CDT) Anatomical Region Laterality Modality SPINE/LOWEXT Nuclear Medicine 01/28/2024 8:35 AM CDT Impressions 01/28/2024 8:50 AM CDT 1. Low bone mass (osteopenia). 2. Elevated ten-year risk for hip fracture by FRAX score, beyond threshold for treatment consideration. General comments regarding interpretation of bone mineral density measurements: a) Consider FDA-approved medical therapies in the setting of 1) Hip or vertebral fracture, 2) Osteoporosis, and 3) low bone mass, referred to as osteopenia, with FRAX score of greater than or equal to 3% for hip fracture or greater than or equal to 20% for major osteoporotic fracture. Treatment may also be indicated based on clinical judgement and/or patient preference. b) Interval between BMD testing should be determined according to each patient's clinical status: typically one year after initiation or change of therapy is appropriate, with longer intervals once therapeutic effect is established. In conditions with rapid bone loss, such as glucocorticoid therapy, testing more frequently is appropriate. Finalized by Vaughn Colon M.D. on 01/28/2024 8:50 AM. Dictated by Vaughn Colon M.D. on 01/28/2024 8:35 AM. Narrative 01/28/2024 8:50 AM CDT BONE DENSITOMETRY CLINICAL INDICATION: 73 years old Female, osteoporosis screening. COMPARISON: 03/21/2022 FINDINGS: DEXA scan of the lumbar spine and left were performed with [employer]. FRAX score was calculated from patient reported risk factors and femoral neck bone density. LUMBAR SPINE, L1-L4 Current: 1.254 g/cm2, T-score of +0.5 Previous: 1.228 g/cm2, T-score of +0.3 There are however hypertrophic degenerative changes of the lumbar spine which could artificially elevate the bone mineral density. LEFT FEMORAL NECK Current: 0.808 g/cm2, T-score of- 1.7 Previous: 0.819 g/cm2, T-score of -1.6 LEFT TOTAL HIP Current: 0.837 g/cm2, T-score of -1.4 Previous: 0.843 g/cm2, T-score of -1.3 Bone mineral density of the right hip was not obtained. FRAX SCORE (risk factor: History of fracture) 10 year risk hip fracture = 3.2% 10 year risk major osteoporotic fracture = 16.1% WHO Criteria for Diagnosis of Osteoporosis (T-score)* Normal (-1.0 and above) Low bone mass, referred to as osteopenia (Between -1.0 and -2.5) Osteoporosis (-2.5 and below) *Based on region with lowest bone mineral density. Procedure Note Vaughn Colon MD - 01/28/2024 BONE DENSITOMETRY CLINICAL INDICATION: 73 years old Female, osteoporosis screening. COMPARISON: 03/21/2022 FINDINGS: DEXA scan of the lumbar spine and left were performed with [employer]. FRAX score was calculated from patient reportedrisk factors and femoral neck bone density. LUMBAR SPINE, L1-L4 Current: 1.254 g/cm2, T-score of +0.5 Previous: 1.228 g/cm2, T-score of +0.3 There are however hypertrophic degenerative changes of the lumbar spinewhich could artificially elevate the bone mineral density. LEFT FEMORAL NECK Current: 0.808 g/cm2, T-score of- 1.7 Previous: 0.819 g/cm2, T-score of -1.6 LEFT TOTAL HIP Current: 0.837 g/cm2, T-score of -1.4 Previous: 0.843 g/cm2, T-score of -1.3 Bone mineral density of the right hip was not obtained. FRAX SCORE (risk factor: History of fracture) 10 year risk hip fracture = 3.2% 10 year risk major osteoporotic fracture = 16.1% WHO Criteria for Diagnosis of Osteoporosis (T-score)* Normal (-1.0 and above) Low bone mass, referred to as osteopenia (Between -1.0 and -2.5) Osteoporosis (-2.5 and below) *Based on region with lowest bone mineral density. IMPRESSION 1. Low bone mass (osteopenia). 2. Elevated ten-year risk for hip fracture by FRAX score, beyond thresholdfor treatment consideration. General comments regarding interpretation of bone mineral densitymeasurements: a) Consider FDA-approved medical therapies in the setting of 1) Hip orvertebral fracture, 2) Osteoporosis, and 3) low bone mass, referred to asosteopenia, with FRAX score of greater than or equal to 3% for hipfracture or greater than or equal to 20% for major osteoporotic fracture.Treatment may also be indicated based on clinical judgement and/or patientpreference. b) Interval between BMD testing should be determined according to eachpatient's clinical status: typically one year after initiation or changeof therapy is appropriate, with longer intervals once therapeutic effectis established. In conditions with rapid bone loss, such as glucocorticoidtherapy, testing more frequently is appropriate. Finalized by Vaughn Colon M.D. on 01/28/2024 8:50 AM. Dictated by Kieran Montero on 01/28/2024 8:35 AM. Fanny Mejia MD DEXA ORDERABLES Final Result * HEPATITIS C ANTIBODY W REFLEX HCV PCR QUANT (01/17/2022 2:20 PM CDT) Anti HCV NONREACTIVE NR-NONREA CTIVE 01/17/2022 4:01 PM CDT MAIN LAB Comment:Antibodies to HCV we re not detected. BLOOD / Unknown 01/17/2022 2 :20 PM CDT 01/17/2022 2:22 PM CDT Ayse Sherman MD LABORATORY ORDERABLES Final Res ult [facility]IN [facility] [address] [place] [address], from Last 3 Months or Most Recently Relevant to Health Maintenance Insurance MEDICARE PART A AND B BS SUPPLEMENT Advance Directives * Full Code (Latest Code Status on File) Date Activated Date Inactivated Comments 07/09/2023 8:28 AM 07/10/2023 11:36 AM Question Answer Comments Provider has discussed Code Status w/Patient or Family? Yes * Full Code Date Activated Date Inactivated Comments 06/28/2022 2:29 AM 06/30/2022 4:24 PM Question Answer Comments Provider has discussed Code Status w/Patient or Family? No, more discussion needed * Full Code Date Activated Date Inactivated Comments 08/27/2020 4:55 PM 08/29/2020 2:19 PM Question Answer Comments Provider has discussed Code Status w/Patient or Family? Yes * Full Code Date Activated Date Inactivated Comments 08/27/2020 4:51 PM 08/27/2020 4:54 PM Question Answer Comments Provider has discussed Code Status w/Patient or Family? No, more discussion needed * Full Code Date Activated Date Inactivated Comments 08/15/2020 8:45 PM 08/19/2020 4:50 PM Question Answer Comments Provider has discussed Code Status w/Patient or Family? Yes Care Teams Order Entry Technician Relationship Specialty Start Date End Date Karen Wilkins DO [address] [place] [address] PCP - General Geriatric Medicine, Internal Medicine 02/06/24 Jordana Schofield 12/13/15 Kateryna Morales MD [address] [place] [id number] Internal Medicine 11/23/22 Karen Wilkins DO [address] [place] [address] CCP - Continuity of Care Provider Geriatric Medicine, Internal Medicine 02/06/24
--- OUTSIDE RECORDS SUMMARY | 2024-09-17 09:16 | XMS_ITS | Patient Health Record ---
Author Organization [facility] Gustavo rosas Billing Info Address [address] [place] [address] Care Team Providers Care Implementation Project Manager Name Role Phone KARLEEBONON Primary Care Provider [phone] Allergies Allergen (clinical drug ingredient) Drug/Non Drug Allergy documented on EMR Reaction Allergy Type Onset Date Status doxycycline Doxycycline Hyclate severe diarrhea Drug Allergy Active penicillin G Penicillin G Potassium childhood Drug Allergy Active Reason For Referral No Information Medications Medication SIG (Take, Route, Frequency, Duration) Notes Start Date End Date Status Centrum Silver 50+Women - as directed Orally Active Acetaminophen 500 MG 1 tablet as needed Orally every 6 hrs Not-Taking Align 4 MG as directed Orally Active Flecainide Acetate 50 MG 1 tablet Orally BID Active Metoprolol Succinate 25 MG 1 capsule Ora lly Once a day Active Eliquis 5 MG 1 tablet Orally BID Active Escitalopram Oxalate 10 MG TAKE 1 TABLET BY MOUTH EVERY DAY for 90 Active Atorvastatin Calcium 40 MG TAKE 1 TABLET BY MOUTH EVERY DAY FOR 90 DAYS for 90 Active Pantoprazole Sodium 40 MG 1 tablet Orall y Daily for 90 day(s) Active Triamterene-HCTZ 37.5-25 MG TAKE 1 TABLET BY MOUTH EVERY MORNING for 90 Not-Taking Lasix 40 MG 1 tablet Orally Once a day for 30 day(s) Not-Taking Immunizations Vaccine Route Administration Date Status Comme nts FLU (Past vaccine of unknown type) Unknown 11/16/2017 Administered PNEUMOCOCCAL - 23 POLY (PNEUMOVAX 23) IM Intramuscular 09/20/2016 Administered PNEUMOCOCCAL 13 CONJ ([id number]) Unknown 09/15/2015 Pending zCOVID-19 (Moderna Booster) 18+yrs, NO PRES Unknown 01/21/2021 Administered zCOVID-19 (Moderna) 12+yrs, NO PRES Unknown 05/31/2020 Administered estimated zCOVID-19 (Moderna) 12+yrs, NO PRES Unknown 07/01/2020 Administered zFLU 4V (FLUARIX QUAD), 6 MO+, NO PRES - ALL PAYORS Unknown 01/21/2021 Administered ZOSTER (SHINGRIX) Unknown 11/16/2017 Administered ZOSTER (SHINGRIX) IM Intramuscular 11/13/2018 Administered zTETANUS TOXOID Unknown 05/30/2011 Administered zZOSTER (ZOSTAVAX) IM Intramuscular 09/18/2012 Administere d Pt brought in Problems Problem Type SNOMED Code ICD Code Onset Dates Problem Status W/U Status Risk Notes Problem 17652049 Other hyperlipidemia (E78.49) Active confirmed Problem 922401301 Superior mesenteric artery stenosis (I77.1) Active confirmed Problem 93520160 Hyperlipidemia LDL goal <70 (E78.5) Active confirmed Problem 963618634 Pain of left great toe (M79.675) Active confirmed Problem 410532390 Coronary artery disease involving [place] coronary artery of [place] heart without angina pectoris (I25.10) Active confirmed Problem 32503648394021675 Dupuytren's contracture of left hand (M72.0) Active confirmed Problem 787136183 Intermittent atrial fibrillation (I48.0) Active confirmed Problem 853175362 Acute idiopathic pericarditis (I30.0) Active confirmed Problem Essential hypertension with goal blood pressure less than 140\/90 (I10) Active confirmed Plan Of Treatment Pending Test Test Name Order Date CBC (INCLUDES DIFF/PLT) (Q-6399) 013 LIPID PANEL, STANDARD (Q-7600) 3 LIPID PANEL, STANDARD (Q-7600) 3 Comprehensive Metabolic Panel(Q-94945) 0 05/27/2012 Comprehensive Metabolic Panel(Q-65630) 1 05/12/2012 CT- SCREENING FOR CORONARY ARTERY (38343 )([facility]) 09/17/2014 MAMMO- DIGITAL OFELIA DIAG BILAT (12520)([facility]) 06/28/2015 MAMMO- DIGITAL OFELIA SCREEN BILAT (90450)( [facility] 11/05/2018 MAMMO- DIGITAL OFELIA SCREEN BILAT (70806)( [facility]) 07/26/2016 XRAY-LUMBAR SPINE AP/LAT/2 OBLIQUES([facility]) 06/04/2012 US- SOFT TISSUE HEAD/NECK (28214)([facility]) 12/04/2019 US- BREAST LT (22841)([facility]) 020 URINALYSIS, COMPLETE W/REFLEX TO CULTURE (Q-3020) 03/11/2013 Creatine Kinase,Total (CK) (LC-303988) 0 04/12/2021 TSH (LC-052053) 04/12/2021 TSH (LC-020838) 06/11/2013 CBC With Differential/Platelet (LC-26986 9) 04/12/2021 Vitamin D, 25-Hydroxy (LC-038939) 2020 ColoFIT,Occult Blood,Fecal,IA (LC-617020 ) 11/10/2019 ColoFIT,Occult Blood,Fecal,IA (LC-265204 ) 04/12/2021 ColoFIT,Occult Blood,Fecal,IA (LC-899463 ) 04/07/2014 ColoFIT,Occult Blood,Fecal,IA (LC-931958 ) 11/05/2018 Lipid Panel With LDL/HDL Ratio (LC-32332 0) 09/17/2014 Lipid Panel With LDL/HDL Ratio (LC-07139 0) 09/10/2013 Lipid Panel (LC-453038) 04/12/2021 Comp. Metabolic Panel (14) (LC-244857) 0 04/12/2021 Comp. Metabolic Panel (14) (LC-131866) 0 10/01/2020 Comp. Metabolic Panel (14) (LC-368043) 0 09/10/2013 Comp. Metabolic Panel (14) (LC-371082) 0 09/17/2014 CT- ABD AND PELVIS W/CONT (51938)([facility]) 09/01/2011 UA/M w/rflx Culture, Routine (LC-173587) 04/12/2021 TSH (Q-899) 03/11/2013 EKG (43637) IH 11/10/2019 Campylobacter Culture (LC-083162) 2015 Insurance Providers Payer Name Payer Address Payer Phone Subscriber Number Group Number Insured Name Patient Relationship to Insured Coverage Start Date Coverage End Date MEDICARE [place] PART B [address] [place], [place] [id number] Emanuel Trevino Self - patient is the insured [address] 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 Rod's office), last scan 05/23/2013, 03/22/2016 Dr. Robles [facility] states no more scans unless pt develops symptoms fluctuating severe hypertens ion followed by Dr. Roberto Alvarado, [facility] Cardiology zero calcium score 09/29/2014 ; score of 4 on 11/20/2019 placing pt in the 40% for age C. difficile May to t, treated with metronidazole and then vanco by Dr. 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
--- OUTSIDE RECORDS SUMMARY | 2024-09-17 09:16 | XMS_ITS | Clinical Summary ---
Author Organization [facility] Address [address] [place] [address] Care Team Providers Care Clinical Research Administrator Name Role Phone Dianne Butts MD Primary Care Provider [phone] Allergies Active Allergy Reactions Criticality Noted Date Comments Doxycycline Diarrhea Low 11/23/2019 severe diarrhea Medications ATORVASTATIN CALCIUM (ATORVASTATIN ORAL) Take by mouth. Activ e TRIAMTERENE-HYD ROCHLOROTHIAZID ORAL Take by mouth. Activ e omeprazole (PRILOSEC) 20 MG capsule Take one capsule (20 mg total) by mouth daily. 30 capsule 0 6 Active flecainide (TAMBOCOR) 50 MG tablet 2 Active metoprolol succinate (TOPROL-XL) 25 MG 24 hr tablet Take 25 mg by mouth daily. 2 Active ELIQUIS 5 mg tablet 2 Active lisinopriL (PRINIVIL,ZESTR IL) 5 MG tablet Take 10 mg by mouth. 2 Active pantoprazole (PROTONIX) 40 MG tablet Take 1 tablet by mouth daily. 1 Active escitalopram oxalate (LEXAPRO) 10 mg tablet Take 10 mg by mouth daily. 2 Active erythromycin (ROMYCIN) ophthalmic ointmentIndicat ions:Redness of left eye Administer to eye 3 (three) times a day. Instill a 1 cm ribbon of ointment into affected eye(s) 3.5 g 2 Active Active Problems No known active problems Social History Tobacco Use Types Packs/Day Years Used Date Smoking Tobacco: Never Smokeless Tobacco: Never Alcohol Use Standard Drinks/Week Comments No 0 (1 standard drink = 0.6 oz pur e alcohol) Comments No Sex and Gender Information Value Date Recorded Sex Assigned at Not on file Legal Sex Female 5:40 PM CDT Gender Identity Not on file Sexual Orientation Not on file Last Filed Vital Signs Vital Sign Reading Time Taken Comments Blood Pressure 110/72 11/09/2021 5:17 PM CDT Pulse 77 11/09/2021 5:17 PM CDT Temperature 37.2 C (98.9 F) 11/09/2021 5:17 PM CDT Respiratory Rate 18 11/09/2021 5:17 PM CDT Oxygen Saturation 98% 11/09/2021 5:17 PM CDT Inhaled Oxygen Concentration - - Weight 64 kg (141 lb 1.5 oz) 05/18/2015 10:34 AM [employer] Height 167.6 cm (5' 5.98) 05/18/2015 10:[address] Body Mass Index 22.78 05/18/2015 10:34 AM [employer] Plan of Treatment Health Maintenance Due Date Last Done Comments Colonoscopy 1950 Colorectal Cancer Screening 1950 FIT-DNA 1950 Fecal Occult Blood or FIT 1950 Hepatitis C Screen 1950 Sigmoidoscopy 1950 Td/Tdap# 1950 Social Drivers of Health# 1968 Mammogram Screening 1990 Pneumococcal Vaccine: 50+ Years (1 of 1 - PCV) 2000 Medicare Annual Wellness 04/02/2015 Depression Screening PHQ-9 # 2015 Osteoporosis Screening 2015 Fall Risk Assessment # 05/18/2016 05/18/2015 Zoster Vaccine# (2 of 2) 01/11/2018 11/16/2017 COVID-19 Vaccine ( season) 2023 08/05/2021, 01/21/2021, 06/02/2020, Additional history exists Advance Care Planning Conversation# 04/02/2024 Influenza Vaccine (Season Ended) 2024 11/16/2017 RSV Vaccine: Adults (75+YO) or (high risk 60-74 YO) or () (1 - 1-dose 75+ series) 2025 Hepatitis B Vaccine Aged Out No longe r eligible based on patient's age to complete this topic Insurance MEDICARE PART A B [facility] MEDICARE SUPPLEMENT MEDICARE PART A B [facility] MEDICARE SUPPLEMENT Care Teams Clinical Research Administrator Relationship Specialty Start Date End Date Dianne Butts MD PCP - General Internal Medicine 05/18/15
--- OUTSIDE RECORDS SUMMARY | 2024-09-17 09:16 | XMS_ITS | Encounter Summary ---
Author Organization [facility] Address [address] [place] [address] Care Team Providers Care Seo Manager Name Role Phone Jordana Schofield Unavailable Unavailable Ayse Sherman MD Primary Care Provider [phone] Ayse Sherman MD Unavailable [phone] Kateryna Morales MD Primary Care Provider Kateryna Morales MD Unavailable Karen Wilkins DO Primary Care Provider [phone] Karen Wilkins DO Unavailable [phone] Reason for Visit * Reason Comments Medication Refill Encounter Details Date Type Department Care Team (Late Contact Info) Description 11/15/2022 Refill Cardiovascular Medicine: [facility] [place], [address] [place] [address]. [address], [address] [place] [address] Ayse Sherman MD [address] [place] [phone] Medication Refill Social History Tobacco Use Types Packs/Day Years Used Date Smoking Tobacco: Former Cigarettes 0.5 10 1 964 - 1973 Smokeless Tobacco: Never Comments:I quit smoking in m y late 20's. Alcohol Use Standard Drinks/Week Comments Not Currently 0 (1 standard drink = 0.6 oz pure alcohol) I quit drinking in May 1988 PHQ-2 Answer Date Recorded PHQ-2 Score 0 06/23/2022 Social Connections Answer Date Recorded Do you often feel that you lack companionship? N o 05/15/2022 Alcohol Use Answer Date Recorded Alcohol Use No 06/01/2021 Male: 9+ ounces (15+ Standard Drinks) per week T hreshold Not on file 06/01/2021 Female: 4.8+ ounces (8+ Standard Drinks) per wee k Threshold 0 06/01/2021 Financial Resource Strain Answer Date R ecorded In the last 12 months, has y our [employer] shut off your service for not paying your bills? No 05/15/2022 Do problems getting childcar e make it difficult to work or study? No 05/15/2022 In the last 12 months, have you needed to see a doctor, but could not because of cost? No 05/15/2022 In the last 12 months, did you skip medications to save money? No 05/15/2022 Stress Answer Date Recorded Total Score: 0 05/18/2022 Food Insecurity Answer Date Recorded Within the past 12 months we worried whether our food would run out before we got money to buy more. Never True 05/15/2022 Within the past 12 months th e food we bought just didn't last and we didn't have money to get more. Never True 05/15/2022 Transportation Needs Answer Date Record ed In the past 12 months, have you ever gone without health care because you didn't have a way to get there? No 05/15/2022 Housing Stability Answer Date Recorded Are you worried that in the next 2 months, you may not have stable housing? No 05/15/2022 Health Literacy Answer Date Recorded Do you have problems underst anding what is told to you about your medical conditions? No 05/15/2022 Comments No Sex and Gender Information Value [...] track( 10:17 PM CDT) No Garrett Torrez, JUAN-MANDI Note: Pt's pain will be under control while in the hospital. Medication Adherence Medication Adherence On track( 10:16 PM CDT) No Josefina Koch, DAVE documented as of this encounter Visit Diagnoses Not on filedocumented in this encounter Additional Health Concerns Infection Onset Date Last Indicated Resolved Time C difficile Rule-Out 08/29/2023 07/12/2024 024 9:19 PM CDT C difficile Rule-Out 07/11/2024 07/12/2024 025 3:06 PM CDT Assessment Noted Time A fall risk assessment has been complete d for the patient 08/01/2022 12:51 PM CDT PHQ-2 Depression Total Score: 0 06/24/19 9:50 AM CDT documented as of this encounter Care Teams Seo Manager Relationship Specialty Start Date End Date Asye Sherman MD [address] [address] PCP - General Internal Medicine 01/17/22 11/22/22 Kateryna Morales MD [address] [place] [address] PCP - General Internal Medicine 11/23/22 02/05/24 Karen Wilkins DO [address] [place] [address] PCP - General Geriatric Medicine, Internal Medicine 02/06/24 Jordana Schofield 12/13/15 Ayse Sherman MD [address] [address] CCP - Continuity of Care Provider Internal Medicine 01/19/22 11/27/22 Kateryna Morales MD [address] [place] [address] Internal Medicine 11/23/22 Karen Wilkins DO [address] [place] [address] CCP - Continuity of Care Provider Geriatric Medicine, Internal Medicine 02/06/24 documented as of this encounter
--- OUTSIDE RECORDS SUMMARY | 2024-09-17 09:16 | XMS_ITS | Encounter Summary ---
Author Organization [facility] Address [address] [place] [address] Care Team Providers Care Orthopedic Brace Maker Name Role Phone Jordana Schofield Unavailable Unavailable Kateryna Morales MD Primary Care Provider [phone] Kateryna Morales MD Unavailable Karen Wilkins DO Primary Care Provider [phone] Karen Wilkins DO Unavailable [phone] Reason for Visit * Reason Comments Medication Refill Encounter Details Date Type Department Care Team (Late st Contact Info) Description 02/10/2023 Refill Cardiovascular Medicine: [facility] [place], [address], [address] [place] [address] [place] [address] [facility] [place] [address] [place] [address] Medication Refill Social History Tobacco Use Types Packs/Day Years Used Date Smoking Tobacco: Former Cigarettes 0.5 10 1 964 - 1973 Smokeless Tobacco: Never Comments:I quit smoking in m y late 's. Alcohol Use Standard Drinks/Week Comments Not Currently 0 (1 standard drink = 0.6 oz pure alcohol) I quit drinking in May 1988 PHQ-2 Answer Date Recorded PHQ-2 Score 0 11/23/2022 Social Connections Answer Date Recorded Do you [...] In the last 12 months, has y [employer] shut off your service for not paying [...] Entry Date Author No 11/12/2020 1:33 PM SARAT Marla Zuniga MA documented in this encounter Ordered Prescriptions Prescription Sig Dispense Quantity Refills Last Filled Start Date End Date ELIQUIS 5 mg tablet TAKE 1 TABLET BY MOUTH TWICE A DAY 180 tablet 1 02/12/2023 07/10/2023 documented in this encounter Miscellaneous Notes * Telephone Encounter - Adelita Ruvalcaba RN - 02/12/2023 1:09 PM CST Protocol and chart reviewed. Refill approved. Patient overdue for annual AST and ALT labs. Orders printed and mailed to patient. Refill approved. NG SERVER documented in this encounter Plan of Treatment [...] 021 10:17 PM CDT) No Garrett Torrez, STEEL BURNER-LOCAL COMBINATION TRUCK DRIVER Note: Pt's pain will be under control while in the hospital. Medication Adherence Medication Adherence On track( 021 10:16 PM CDT) Josefina Hoyt RN documented as of this encounter Results * AST (SGOT) (02/16/2023 9:31 AM DINING SERVER) AST (SGOT) 24 7 - 40 U/L 02/16/2023 1:07 PM DINING SERVER [facility] DE[facility] PATH AND LAB MEDICINE BLOOD / Unknown 02/16/2023 9 :31 AM DINING SERVER 02/16/2023 9:32 AM DINING SERVER Leonides Duke MD LABORATORY ORDERABLES Final Result Performing Organization Address [facility] Co de Phone Number [facility] [address] * ALT (SGPT) (02/16/2023 9:31 AM DINING SERVER) ALT (SGPT) 16 7 - 56 U/L 02/16/2023 1:07 PM DINING SERVER [facility] DEPT PATH AND LAB MEDICINE BLOOD / Unknown 02/16/2023 9 :31 AM DINING SERVER 02/16/2023 9:32 AM DINING SERVER Leonides Duke MD LABORATORY ORDERABLES Final Result Performing Organization Address City/[facility]/ZIP Co de Phone Number [facility] [address] [place] [address] documented in this encounter Visit Diagnoses Diagnosis Current use of predatory animal exterminator anticoagulation- Primary Long-term (current) use of anticoagulants documented in this encounter Discontinued Medications Medication Sig Discontinue Reason Start Date End Da te apixaban (ELIQUIS) 5 mg tablet Take one tablet by mouth twice daily. 08/15/2022 02/12/2023 documented as of this encounter Additional Health Concerns Infection Onset Date Last Indicated Resolved Time C difficile Rule-Out 08/29/2023 07/12/2024 024 9:19 PM CDT C difficile Rule-Out 07/11/2024 07/12/202412/2 025 3:06 PM CDT Assessment Noted Time A fall risk assessment has been complete d for the patient 01/22/2023 7:03 PM CDT PHQ-2 Depression Total Score: 0 11/24/19 8:33 AM CDT documented as of this encounter Care Teams Orthopedic Brace Maker Relationship Specialty Start Date End Date Kateryna Morales MD [address] [address] PCP - General Internal Medicine 11/23/22 02/05/24 Karen Wilkins DO [address] [place] [address] PCP - General Geriatric Medicine, Internal Medicine 02/06/24 Jordana Schofield 12/13/15 Kateryna Morales MD [address] [address] Internal Medicine 11/23/22 Karen Wilkins DO [address] [place] [address] CCP - Continuity of Care Provider Geriatric Medicine, Internal Medicine 02/06/24 documented as of this encounter
--- OUTSIDE RECORDS SUMMARY | 2024-09-17 09:16 | XMS_ITS | Patient Health Record ---
Author Organization [facility] Address [address] [place] [address] Care Team Providers Care Commercial Pest Control Representative Name Role Phone Whit DUBOSE, Ayse Primary Care Provider Unavailmarva eulogio Mel Giron APRN Unavailable [phone] Allergies Allergen (clinical drug ingredient) Drug/Non Drug Allergy documented on EMR Reaction Allergy Type Onset Date Status PLANT POLLENS (HAY FEVER) (uncoded) Unknown Allergy Active PENICILLIN Unknown Drug Allergy Active Reason For Referral No Information Medications Medication SIG (Take, Route, Frequency, Duration) Notes Start Date End Date Status Atorvastatin Calcium 20 MG 1 times per day Oral Active Escitalopram Oxalate 10 MG 1 tablet Oral ly Once a day Active Metoprolol Succinate ER 25 MG 1 times per day Oral Active Flecainide Acetate 50 MG as directed Orally Active Lisinopril 5 MG 1 tablet Orally Twic e a day Active Pantoprazole Sodium 40 MG 1 tablet Orall y Once a day Active Immunizations Vaccine Route Administration Date Status Comme nts Influenza Vaccination Unknown 12/29/2020 Administered Pneumonia Vaccination Unknown 12/29/2020 Administered Social History Tobacco Use: Social History Observation Description Date Details (start date - stop date) Never Smoker NA - NA Tobacco Use/Smoking Question Answer Notes Tobacco use: nonsmoker Problems Problem Type SNOMED Code ICD Code Onset Dates Problem Status W/U Status Risk Notes Problem 976885758 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 [address] [place] [address] [phone] [id number] EMANUEL MACKENZIE Self - patient is the insured Medical (General) History Medical History History ICD Code Cancer-Skin, High Blood Pressure, High C holesterol Surgical History Surgery Date(Month/Year) Appendectomy, Cataract Surge ry, Tonsillectomy, Tubal Ligation PAST SurgHX Till 12/22/2019
--- OUTSIDE RECORDS SUMMARY | 2024-09-17 09:16 | XMS_ITS | Encounter Summary ---
Author Organization [facility] Address [address] [place] [address] Care Team Providers Care Senior Oracle Database Administrator Name Role Phone Jordana Schofield Unavailable Unavailable Dianne Butts MD Primary Care Provider [phone] Ayse Sherman MD Primary Care Provider [phone] Ayse Sherman MD Unavailable [phone] Kateryna Morales MD Primary Care Provider Kateryna Morales MD Unavailable aKren Wilkins DO Primary Care Provider [phone] Karen Wilkins DO Unavailable [phone] Encounter Details Date Type Department Care Team (Late st Contact Info) Description 04/20/2020 Pre-Admit Orders Only XDD CARDIOLOGY Paula Leiva, COUNTRY DIRECTOR-MAIL HANDLER SORTER [address] [facility] [place] [address] Social History Tobacco Use Types Packs/Day Years Used Date Smoking Tobacco: Former Smokeless Tobacco: Never Comments:Quit at age 23 Alcohol Use Standard Drinks/Week Comments No 0 [...] have Coronavirus / COVID-19? No / Unsure 04/21/2020 6:38 AM CHILD SUPPORT SPECIALIST documented as of this encounter Functional Status * Does the patient have a hearing impairment: Answer Date of Assessment Author No 11/08/2016 3:44 PM CDT Mark Sheriff APRN documented as of this encounter Plan of Treatment Not on file documented as of this encounter Visit Diagnoses Not on filedocumented in this encounter Additional Health Concerns Infection Onset Date Last Indicated Resolved Time C difficile Rule-Out 08/29/2023 07/12/2024 024 9:19 PM CDT C difficile Rule-Out 07/11/2024 07/12/2024 025 3:06 PM CDT Assessment Noted Time A fall risk assessment has been complete d for the patient 04/15/2020 8:08 AM CHILD SUPPORT SPECIALIST PHQ-2 Depression Total Score: 0 01/13/20 20 2:49 PM CDT documented as of this encounter Care Teams Senior Oracle Database Administrator Relationship Specialty Start [place] [address] [facility] [address] [place] [address] PCP - General Internal Medicine 03/21/16 01/16/22 Ayse Sherman MD [address] [facility] [address] [place], [place] [id number] PCP - General Internal Medicine 01/17/22 11/22/22 Kateryna Morales MD [address] [address] [place] [address] PCP - General Internal Medicine 11/23/22 02/05/24 Karen Wilkins DO [address] [place] [address] PCP - General Geriatric Medicine, Internal Medicine 02/06/24 Jordana Schofield 12/13/15 Ayse Sherman MD [address] [place] [id number] CCP - Continuity of Care Provider Internal Medicine 01/19/22 11/27/22 [place] [address] [place], [place] [address] [place] [address] Internal Medicine 11/23/22 Karen Wilkins DO [address] [place] [address] CCP - Continuity of Care Provider Geriatric Medicine, Internal Medicine 02/06/24 documented as of this encounter
--- OUTSIDE RECORDS SUMMARY | 2024-09-17 09:17 | XMS_ITS | Encounter Summary ---
Author Organization [facility] Address [address] [place] [address] Care Team Providers Care Software Sales Executive Name Role Phone Jordana Schofield Unavailable Unavailable Ayse Sherman MD Primary Care Provider [phone] Ayse Sherman MD Unavailable [phone] Kateryna Morales MD Primary Care Provider [phone] Kateryna Morales MD Unavailable Karen Wilkins DO Primary Care Provider Karen Wilkins DO Unavailable [phone] Encounter Details Date Type Department Care Team (Late st Contact Info) Description 04/06/2022 Prep for Case Eye Care: [address] [place] [address] Kurt Trevino MD [address] [facility] [address] [place] [address] Nuclear sclerotic cataract of left eye (Primary Dx) Social History Tobacco Use Types Packs/Day Years Used Date Smoking Tobacco: Former Cigarettes Smokeless Tobacco: Never Comments:Quit at age 23 Alcohol Use Standard Drinks/Week Comments Not Currently 0 (1 standard drink = 0.6 oz pur e alcohol) PHQ-2 Answer Date Recorded PHQ-2 Score 0 03/17/2022 Alcohol Use Answer Date Recorded Alcohol Use No 06/01/2021 Male: 9+ ounces (15+ Standard Drinks) per week T hreshold Not on file 06/01/2021 Female: 4.8+ ounces (8+ Standard Drinks) per wee k Threshold 0 06/01/2021 Stress Answer Date Recorded Total Score: 0 01/17/2022 Comments No Sex and Gender Information Value Date Recorded Sex Assigned at Female 11/21/2019 9:40 AM CDT Legal Sex Female 5:58 PM CDT Gender Identity Female 11/21/2019 9:40 AM CDT Sexual Orientation Straight 08/15/2020 8: 43 PM CDT COVID-19 Exposure Response Date Recorded In the last 10 days, have yo u been in contact with someone who was confirmed or suspected to have Coronavirus/COVID-19? No / Unsure 03/22/2022 8:09 AM GENERAL CARGO CLERK documented as of this encounter Functional Status * Does the patient have a hearing impairment: Answer Date of Assessment Author No 11/12/2020 1:33 PM CDT Marla Zuniga MA * Does the patient have a visual [...] of Assessment Author No 11/12/2020 1:33 PM SARAT Marla Zuniga MA documented as of this encounter Mental Status * Does the patient have a cognitive impairment: Answer Entry Date Author No 11/12/2020 1:33 PM Marla Lainez MA documented in this encounter Plan of Treatment Not on file documented as of this encounter Goals Goal Patient Goal Type Associated Problems Recent Progress Patient-Stated? Author Resume normal activities Hospital On track( 10:16 PM CDT) Yes Ellen May, DAVE Decrease pain Hospital On track( 10:17 PM CDT) No Garrett Torrez APRN-MANDI Note: Pt's pain will be under control while in the hospital. Medication Adherence Medication Adherence On track( 10:16 PM CDT) No Josefina Koch RN documented as of this encounter Visit Diagnoses Diagnosis Nuclear sclerotic cataract of left eye- Primary Senile nuclear sclerosis documented in this encounter Additional Health Concerns Infection Onset Date Last Indicated Resolved Time C difficile Rule-Out 08/29/2023 07/12/2024 024 9:19 PM CDT C difficile Rule-Out 07/11/2024 07/12/2024 025 3:06 PM CDT Assessment Noted Time A fall risk assessment has been complete d for the patient 03/20/2022 3:42 PM GENERAL CARGO CLERK PHQ-2 Depression Total Score: 0 03/17/20 22 12:09 PM GENERAL CARGO CLERK documented as of this encounter Care Teams Software Sales Executive Relationship Specialty Start Date End Date Ayse Sherman MD [address] [id number] PCP - General Internal Medicine 01/17/22 11/22/22 Kateryna Morales MD [address] [place] [address] PCP - General Internal Medicine 11/23/22 02/05/24 Karen Wilkins DO [address] [place] [address] PCP - General Geriatric Medicine, Internal Medicine 02/06/24 Jordana Schofield 12/13/15 Ayse Sherman MD [address] [id number] CCP - Continuity of Care Provider Internal Medicine 01/19/22 11/27/22 Kateryna Morales MD [address] [address] Internal Medicine 11/23/22 Karen Wilkins DO [address] [place] [address] CCP - Continuity of Care Provider Geriatric Medicine, Internal Medicine 02/06/24 documented as of this encounter
--- OUTSIDE RECORDS SUMMARY | 2024-09-17 09:17 | XMS_ITS | Encounter Summary ---
Author Organization [facility] Address [address] [place] [address] Care Team Providers Care Sas Bi Developer Name Role Phone Jordana Schofield Unavailable Unavailable Kateryna Morales MD Unavailable Karen Wilkins DO Primary Care Provider [phone] Karen Wilkins DO Unavailable [phone] Encounter Details Date Type Department Care Team (Late st Contact Info) Description 07/16/2024 Telephone Endoscopy: [facility] [place] [address] [facility] [address] [place] [address] Nora Chavez Social History Tobacco Use Types Packs/Day Years Used Date Smoking Tobacco: Former Cigarettes 0.5 10 1 964 - 1974 Smokeless Tobacco: Never Comments:I quit smoking in [...] the last 12 months, has y our [employer] shut off your service for not paying [...] impairment: Answer Date of Assessment Author No 07/11/2024 9:10 AM CDT Me joslyn Cartwright LPN * Does the patient have a visual impairment: Answer Date of Assessment Author No 07/11/2024 9:10 AM CDT Me joslyn Cartwright LPN * Does the patient have impaired ambulation: Answer Date of Assessment Author No 07/11/2024 9:10 AM CDT Me joslyn Cartwright LPN * Does the patient have an activity of daily living (ADL) impairment: Answer Date of Assessment Author No 07/11/2024 9:10 AM CDT Me joslyn Cartwright LPN * Does the patient have an instrumental activity of daily living (IADL) impairment: Answer Date of Assessment Author No 07/11/2024 9:10 AM CDT Me joslyn Cartwright LPN documented as of this encounter Mental Status * Does the patient have a cognitive impairment: Answer Entry Date Author No 07/11/2024 9:10 AM CDT Me joslyn Cartwright LPN documented in this encounter Plan of Treatment [...] filedocumented in this encounter Additional Health Concerns Assessment Noted Time PHQ-9 Depression Total Score: 5 07/12/19 9:09 AM CDT A fall risk assessment has been complete d for the patient 07/09/2024 10:37 AM CDT PHQ-2 Depression Total Score: 2 07/12/19 25 9:09 AM CDT documented as of this encounter Care Teams Sas Bi Developer Relationship Specialty Start Date End Date Karen Wilkins DO [address] [place] [address] PCP - General Geriatric Medicine, Internal Medicine 02/06/24 Jordana Schofield 12/13/15 Kateryna Morales MD [address] [place] [address] Internal Medicine 11/23/22 Karen Wilkins DO [address] [place] [address] CCP - Continuity of Care Provider Geriatric Medicine, Internal Medicine 02/06/24 documented as of this encounter
--- OUTSIDE RECORDS SUMMARY | 2024-09-17 09:17 | XMS_ITS | Encounter Summary ---
Author Organization [facility] Address [address] [place] [address] Care Team Providers Care Tailor Helper Name Role Phone Jordana Schofield Unavailable Unavailable Dianne Butts MD Primary Care Provider [phone] Ayse Sherman MD Primary Care Provider [phone] Ayse Sherman MD Unavailable [phone] Kateryna Morales MD Primary Care Provider [phone] Kateryna Morales MD Unavailable Karen Wilkins DO Primary Care Provider [phone] Karen Wilkins DO Unavailable [phone] Reason for Visit * Reason Comments Medication Refill Encounter Details Date Type Department Care Team (Late st Contact Info) Description 09/30/2021 Refill Cardiology: [facility] [address] [place] [address] Drew Martin MD [address] [place], [place] [id number] Medication Refill Social History Tobacco Use Types Packs/Day Years Used Date Smoking Tobacco: Former Cigarettes Smokeless Tobacco: Never Comments:Quit at age 23 Alcohol Use Standard Drinks/Week Comments Not Currently 0 (1 standard drink = 0.6 oz pur e alcohol) PHQ-2 Answer Date Recorded PHQ-2 Score 0 05/30/2021 Alcohol Use Answer Date Recorded Alcohol Use No 06/01/2021 Male: 9+ ounces (15+ Standard Drinks) per week T hreshold Not on file 06/01/2021 Female: 4.8+ ounces (8+ Standard Drinks) per wee k Threshold 0 06/01/2021 Comments No Sex and Gender Information Value [...] 11/12/2020 1:33 PM SARAT Marla Zuniga MA * Does the patient have an instrumental activity of daily living (IADL) impairment: Answer Date of Assessment Author No 11/12/2020 1:33 PM CDT Marla Zuniga MA documented as of this encounter Mental Status * Does the patient have a cognitive impairment: Answer Entry Date Author No 11/12/2020 1:33 PM Marla Lainez MA documented in this encounter Ordered Prescriptions Prescription Sig Dispense Quantity Refills Last Filled Start Date End Date metoprolol XL (TOPROL XL) 25 mg extended release tablet TAKE 1 TABLET BY MOUTH DAILY 90 tablet 3 09/30/2021 06/30/2022 documented in this encounter Plan of Treatment Not on file documented as of this encounter Goals Goal Patient Goal Type Associated Problems Recent Progress Patient-Stated? Author Resume normal activities Hospital On track( 10:16 PM CDT) Yes Ellen May RN Decrease pain Hospital On track( 10:17 PM CDT) No Garrett Torrez APRN-ELECTROSTATIC POWDER COATING TECHNICIAN Note: Pt's pain will be under control while in the hospital. Medication Adherence Medication Adherence On track( 10:16 PM CDT) No Josefina Koch RN documented as of this encounter Visit Diagnoses Not on filedocumented in this encounter Discontinued Medications Medication Sig Discontinue Reason Start Date End Da te metoprolol XL (TOPROL XL) 25 mg extended release tablet Take one tablet by mouth daily. 06/17/2021 09/30/2021 documented as of this encounter Additional Health Concerns Infection Onset Date Last Indicated Resolved Time C difficile Rule-Out 08/29/2023 07/12/2024 024 9:19 PM CDT C difficile Rule-Out 07/11/2024 07/12/2024 025 3:06 PM CDT Assessment Noted Time A fall risk assessment has been complete d for the patient 08/15/2021 10:48 AM CDT PHQ-2 Depression Total Score: 0 05/30/19 22 4:25 PM INSTRUCTOR OF SPANISH documented as of this encounter Care Teams Tailor Helper Relationship Specialty Start [place] [address] [facility] [address] [place] [address] PCP - General Internal Medicine 03/21/16 01/16/22 Ayse Sherman MD [address] [facility] [address] [place], [place] [id number] PCP - General Internal Medicine 01/17/22 11/22/22 Kateryna Morales MD [address] [place] [address] PCP - General Internal Medicine 11/23/22 02/05/24 Karen Wilkins DO [address] [place] [address] PCP - General Geriatric Medicine, Internal Medicine 02/06/24 Jordana Schofield 12/13/15 Ayse Sherman MD [address] [place] [id number] CCP - Continuity of Care Provider Internal Medicine 01/19/22 11/27/22 Kateryna Morales MD [address] [place] [address] Internal Medicine 11/23/22 Karen Wilkins DO [address] [place] [address] CCP - Continuity of Care Provider Geriatric Medicine, Internal Medicine 02/06/24 documented as of this encounter
--- OUTSIDE RECORDS SUMMARY | 2024-09-17 09:17 | XMS_ITS | Encounter Summary ---
Author Organization [facility] Address [address] [place] [address] Care Team Providers Care Orthopaedic Doctor Name Role Phone Jordana Schofield Unavailable Unavailable Kateryna Morales MD Unavailable Karen Wilkins DO Primary Care Provider [phone] Karen Wilkins DO Unavailable [phone] Encounter Details Date Type Department Care Team ([facility] Contact Info) Description 09/05/2024 Results Follow-Up Gastroenterology: [facility] [address] [facility]. [address] [address] Eliana Johnson PA-C [address] [facility] [address] [place], [place] [address] [place], [place] [id number] CALPROTECTIN, FECAL Social History Tobacco Use Types Packs/Day Years [...] In the last 12 months, has y [employer] shut off your service for not paying [...] Author No 07/11/2024 9:10 AM CDT Me Gabbie joslyn, PUBLIC SCHOOL TEACHER * Does the patient have impaired ambulation: Answer Date of Assessment Author No 07/11/2024 9:10 AM CDT Me Gabbie joslyn, PUBLIC SCHOOL TEACHER * Does the patient have an activity of daily living (ADL) impairment: Answer Date of Assessment Author No 07/11/2024 9:10 AM CDT Gabbie joslyn, PUBLIC SCHOOL TEACHER * Does the patient have an instrumental activity of daily living (IADL) impairment: Answer Date of Assessment Author No 07/11/2024 9:10 AM CDT Me Gabbie joslyn, PUBLIC SCHOOL TEACHER documented as of this encounter Mental Status * Does the patient have a cognitive impairment: Answer Entry Date Author No 07/11/2024 9:10 AM CDT Gabbie joslyn, PUBLIC SCHOOL TEACHER documented in this encounter Ordered Prescriptions Prescription Sig Dispense Quantity Refills Last Filled Start Date End Date budesonide (ENTOCORT EC) 3 mg capsule Take three capsules by mouth every morning for 28 days, THEN two capsules every morning for 14 days, THEN one capsule every morning for 14 days. 126 capsule 09/08/2024 documented in this encounter Plan of Treatment Scheduled Orders Name Type Priority Associated Diagnoses Orde r Schedule CALPROTECTIN, FECAL Lab Routine Elevated fecal calprotectin Expected: 12/09/2024 (Approximate), Expires: 09/08/2025 documented as of this encounter Goals Goal [...] as of this encounter Visit Diagnoses Diagnosis Elevated fecal calprotectin- Primary documented in this encounter Additional Health Concerns Assessment Noted Time PHQ-9 Depression Total Score: 5 07/12/19 25 9:09 AM CDT A fall risk assessment has been complete d for the patient 09/01/2024 10:24 AM CDT PHQ-2 Depression Total Score: 2 07/12/19 25 9:09 AM CDT documented as of this encounter Care Teams Orthopaedic Doctor Relationship Specialty Start Date End Date Karen Wilkins DO [address] [place] [address] PCP - General Geriatric Medicine, Internal Medicine 02/06/24 Jordana Schofield 12/13/15 Kateryna Morales MD [address] [place] [address] Internal Medicine 11/23/22 Karen Wilkins DO [address] [place] [address] CCP - Continuity of Care Provider Geriatric Medicine, Internal Medicine 02/06/24 documented as of this encounter
--- OUTSIDE RECORDS SUMMARY | 2024-09-17 09:17 | XMS_ITS | Encounter Summary ---
Author Organization [facility] Address [address] [place] [address] Care Team Providers Care Voting Machine Repairer Name Role Phone Jordana Schofield Unavailable Unavailable Kateryna Morales MD Primary Care Provider Kateryna Morales MD Unavailable Karen Wilkins DO Primary Care Provider [phone] Karen Wilkins DO Unavailable [phone] Encounter Details Date Type Department Care Team (Late Contact Info) Description 01/29/2024 Telephone Family Medicine: [facility] [address] [facility] [place] [address] Kateryna Morales MD [address] [place] [address] Social History Tobacco Use Types Packs/Day Years Used Date Smoking Tobacco: Former Cigarettes 0.5 10 4 - 1973 Smokeless Tobacco: Never Comments:I quit smoking in m y late 's. Alcohol Use Standard Drinks/Week Comments Not Currently 0 (1 standard drink = 0.6 oz pure alcohol) I quit drinking in May 1988 PHQ-2 Answer Date Recorded PHQ-2 Score 0 01/25/2024 Social Connections Answer Date Recorded Do you [...] the last 12 months, has y our [employer] shut off your service for not paying [...] 04/14/2023 Stress Answer Date Recorded Total Score: 7 01/25/2024 Food Insecurity Answer Date Recorded Within the [...] Author No 06/28/2022 4:00 AM CDT Bronwyn Vail, RN * Does the patient have a [...] Marla Zuniga MA documented in this encounter Miscellaneous Notes * Telephone Encounter - Jennifer Escoto - 01/29/2024 8:43 AM CDT Patient called stating that Dr Wilkins wanted to see her for an hour visit. I don't see any appointments available through March. Were you thinking of doing an 11:00 appointment? Routing to Dr Wilkins documented in this encounter Plan of Treatment Not on file documented as of this encounter Goals Goal Patient Goal Type Associated Problems Recent Progress Patient-Stated? Author GOAL General On track( 11:07 AM CDT) No Gaby Batres, DAVE Note: Not to fall Resume normal activities Hospital On track( 10:16 PM CDT) Yes Ellen May, DAVE Decrease pain Hospital On track( 10:17 PM CDT) No Garrett Torrez, NOTCH GRINDER-PARAMEDIC INSTRUCTOR Note: Pt's pain will be under control while in the hospital. Medication Adherence Medication Adherence On track( 10:16 PM CDT) No Josefina Koch, DAVE documented as of this encounter Visit Diagnoses Not on filedocumented in this encounter Additional Health Concerns Infection Onset Date Last Indicated Resolved Time C difficile Rule-Out 07/11/2024 07/12/2024 025 3:06 PM CDT Assessment Noted Time PHQ-9 Depression Total Score: 1 08/29/19 10:39 AM CDT A fall risk assessment has been complete d for the patient 01/25/2024 9:52 AM CDT PHQ-2 Depression Total Score: 0 01/25/20 9:48 AM CDT documented as of this encounter Care Teams Voting Machine Repairer Relationship Specialty Start Date End Date Kateryna Moraels MD [address] [address] PCP - General Internal Medicine 11/23/22 02/05/24 Karen Wilkins DO [address] [place] [address] PCP - General Geriatric Medicine, Internal Medicine 02/06/24 Jordana Schofield 12/13/15 Kateryna Morales MD [address] [address] Internal Medicine 11/23/22 Karen Wilkins DO [address] [place] [address] CCP - Continuity of Care Provider Geriatric Medicine, Internal Medicine 02/06/24 documented as of this encounter
--- OUTSIDE RECORDS SUMMARY | 2024-09-17 09:17 | XMS_ITS | Encounter Summary ---
Author Organization [facility] Address [address] [place] [address] Care Team Providers Care Applications Systems Analyst Name Role Phone ChanduLawsonkendra Kim Unavailable Unavailable Kateryna Morales MD Unavailable Karen Wilkins DO Primary Care Provider [phone] Karen Wilkins DO Unavailable [phone] Reason for Visit * Reason Comments Medication Refill Encounter Details Date Type Department Care Team ([facility] Contact Info) Description 04/23/2024 Refill Internal Medicine: [facility] [address] [facility] [address] [place] [address] Kateryna Morales MD [address] [place], [place] [id number] Social History Tobacco Use Types Packs/Day Years Used Date Smoking Tobacco: Former Cigarettes 0.5 10 1 - 1973 Smokeless Tobacco: Never Comments:I quit smoking in m y late 's. Alcohol Use Standard Drinks/Week Comments Not Currently 0 (1 standard drink = 0.6 oz pure alcohol) I quit drinking in May 1988 PHQ-2 Answer Date Recorded PHQ-2 Score 0 03/28/2024 Social Connections Answer Date Recorded Do you [...] the last 12 months, has y our [employer] shut off your service for not paying [...] Stress Answer Date Recorded Total Score: 0 03/28/2024 Food Insecurity Answer Date Recorded Within the [...] Date Author No 11/12/2020 1:33 PM CDT Malra Zuniga MA documented in this encounter Plan [...] track( 10:17 PM CDT) No Garrett Torrez, TALENT ACQUISITION SOURCER-TUBE STATION ATTENDANT Note: Pt's pain will be under control while in the hospital. Medication Adherence Medication Adherence On track( 10:16 PM CDT) No Josefina Koch, DAVE documented as of this encounter Visit Diagnoses Not on filedocumented in this encounter Additional Health Concerns Infection Onset Date Last Indicated Resolved Time C difficile Rule-Out 07/11/2024 07/12/2024 025 3:06 PM CDT Assessment Noted Time PHQ-9 Depression Total Score: 0 03/28/20 24 10:49 AM SLUDGE CONTROL OPERATOR A fall risk assessment has been complete d for the patient 04/14/2024 3:19 PM SLUDGE CONTROL OPERATOR PHQ-2 Depression Total Score: 0 03/28/20 24 10:49 AM SLUDGE CONTROL OPERATOR documented as of this encounter Care Teams Applications Systems Analyst Relationship Specialty Start Date End Date Karen Wilkins DO [address] [place] [address] PCP - General Geriatric Medicine, Internal Medicine 02/06/24 Jordana Schofield 12/13/15 Kateryna Morales MD [address] [place] [address] Internal Medicine 11/23/22 Karen Wilkins DO [address] [place] [address] CCP - Continuity of Care Provider Geriatric Medicine, Internal Medicine 02/06/24 documented as of this encounter
--- OUTSIDE RECORDS SUMMARY | 2024-09-17 09:17 | XMS_ITS | Continuity of Care Document ---
Author Organization [facility] Address [address] [place] [address] Phone Care Team Providers Care Isotope Technician Name Role Phone Colton Daniels MD Unavailable Unavailable Allergies, Adverse Reactions, Alerts Substance Reaction Status Criticality Penicillins Active No Information Medications Medication Instructions Dosage Effective Dates (start - stop) Status Comments PLAVIX (unknown strength) Not Available - Active EZALLOR SPRINKLE (unknown strength) Not Available - Active FAMOTIDINE (unknown strength) Not Available - Active AMLODIPINE-OLMESARTAN (unknown strength) Not Available - Active LEXAPRO (unknown strength) Not Available - Active PANTOPRAZOLE SODIUM (unknown strength) Not Available - Active FLECAINIDE ACETATE (unknown strength) Not Available - Active METOPROLOL SUCCINATE (unknown strength) Not Available - Active Procedures Procedure Date Ophth Serv: Med Exam; Interm E 25 Postop F/u Visit Incld Global 5 Yag Capsulotomy Offic/outpt E&m Estab Low-mod 4 Ophth Serv: Med Exam; Comp Est 24 Postop F/u Visit Incld Global 3 Ophth Serv: Med Exam; Interm E 23 Postop F/u Visit Incld Global 3 Postop F/u Visit Incld Global 3 Phacoemulsification W IOL Vivity Toric Extended Lens LenSx Astigmatism (Basic LenSX) 023 LenStar IOL Left Professional 3 Prepayment On Account Ophth Serv: Med Exam; Comp Est 23 Ophth Serv: Med Exam; Comp Est 22 Determ Refractive State Contact Lens Fit Pt Resp Ophth Serv: Med Exam; Comp Est 21 Determ Refractive State Contact Lens Fit Pt Resp Contact Lens Fit Pt Resp Ophth Serv: Med Exam; Comp New 19 Determ Refractive State Advance Directives Directive Yes / No Effective Date File Name No Information Encounters Encounter Description Practice Location Reason(s) For Visit Diagnoses Date Provider Providers Copied on Encounter [facility], [address] [place] [address], [id number], tel:[phone] [facility] Office flashes and floaters complaint (chief complaint) Vitreous degeneration, right eye Jeremiah Segura. [address], [place], [place], [id number] . tel: [phone] Referring Provider: Modesta Clark [address], [place], [address] . tel:[phone] [facility], [address] [place] [address], [id number], tel:[phone] [facility] Office post-op exam (chief complaint) Post Operative Exam 5 Gayatri Quintero. [address], [place], [place], [id number] . tel: [phone] Referring Provider: Modesta Clark [address], [place], [address] . tel:[phone] [facility], [address] [place] [address], [id number], tel:[phone] [facility] Other secondary cataract, right eye 5 Gayatri Quintero. [address], [place], [place], [address] . tel: [phone] Referring Provider: Modesta Clark [address], [place], [address] . tel:[phone] Offic/outpt E&m Estab Low-mod [facility], [address] [place] [address], [id number], [place] tel:[phone] [facility] Office Vision Changes (chief complaint) Other secondary cataract, right eyeDry eye syndrome of bilateral lacrimal glands 4 Walline Leon. [address], [place], [place], [address] . tel: [phone] Referring Provider: Modesta Clark [address], [place], [address] . tel:[phone] [facility], [address] [place] [address], [id number], [place] tel:[phone] [facility] Office retina exam (chief complaint) Other secondary cataract, bilateralDry eye syndrome of bilateral lacrimal glands 4 Walline Leon. [address], [place], [place], [address] . tel: [phone] Referring Provider: Modesta Clark [address], [place], [address] . tel:[phone] [facility], [address] [place] [address], [id number], [place] tel:[phone] [facility] Office Post-op exam (chief complaint) Post Operative Exam 3 Noemi Molina [address], [place], [place], [id number] . tel: [phone] Referring Provider: Modesta Clark [address], [place], [address] . tel:[phone] [facility], [address] [place] [address], [id number], [place] tel:[phone] [facility] Office Discomfort complaint (chief complaint) Conjunctivitis 3 Noemi Black. [address], [place], [place], [id number] . tel: [phone] Referring Provider: Modesta Clark [address], [place], [address] . tel:[phone] [facility], [address] [place] [address], [id number], tel:[phone] [facility] post-op exam (chief complaint) Post Operative Exam Jul- 3 Noemi Black. [address], [place], [place], [address] . tel: [phone] Referring Provider: Modesta Clark [address], [place], [address] . tel:[phone] [facility], [address] [place] [address], [id number], [place] tel:[phone] [facility] Office post-op exam (chief complaint) Post Operative Exam 3 Noemi Black. [address], [place], [place], [address] . tel: [phone] Referring Provider: Modesta Clark OKishan [address], [place], [address] . tel:[phone] [facility], [address] [place] [address], [id number], [place] tel:[phone] [facility] Age-related nuclear cataract, left eye Jul- 3 Gayatri LOVE [address], [place], [place], [address] . tel: [phone] Referring Provider: Sofia Colorado [address], [place], [address] . tel:[phone] [facility], [address] [place] [address], [id number], tel:[phone] [facility] Office cataract evaluation (chief complaint)yag consultation (chief complaint) Nuclear sclerosis cataract of left eyeOther secondary cataract, right eye May-0 3 Gayatri Quintero. [address], [place], [place], [id number] . tel: [phone] Referring Provider: Sofia Colorado P. [address], [place], [address] . tel:[phone] [facility], [address] [place] [address], [id number], tel:[phone] [facility] Office retina exam (chief complaint)trevin ble vision (chief complaint)Hea daches (chief complaint) Age-related nuclear cataract, left eyeOther secondary cataract, right eye 3 Noemi Black. [address], [place], [place], [address] . tel: [phone] [facility], [address] [place] [address], [id number], tel:[phone] [facility] Office retina exam (chief complaint)cat aract evaluation (chief complaint) Other secondary cataract, right eyeAge-related nuclear cataract, left eye 2 Noemi Black. [address], [place], [place], [address] . tel: [phone] [facility], [address] [place] [address], [id number], tel:[phone] [facility] Office retina exam (chief complaint)con tact lens fit (chief complaint)cat aract evaluation (chief complaint) Other secondary cataract, right eyeNuclear sclerosis cataract of left eye 1 Noemi Black. [address], [place], [place], [id number] . tel: [phone] [facility], [address] [place] [address], [id number], tel:[phone] [facility] Contact lens fit (chief complaint) Myopia, left eye Jeferson- 0 Noemi Black. [address], [place], [place], [address] . tel: [phone] [facility], [address] [place] [address], [id number], tel:[phone] [facility] Office cataract evaluation (chief complaint) Nuclear sclerosis cataract of left eyeOther secondary cataract, right eye Oct-0 9 Lenin Marks. [address], [place], [place], [address] . tel: [phone] Family History Family Member Type Diagnosis Age At Onset Father Problem (finding) No history of Glaucoma Maternal aunt Problem (finding) Diabetes mellitus Payers Payer name Insurance type Covered green party ID Authoriza tinikos(s) Medicare [place] WP MB [id number] BC/BS BL [id number] Social History Type Description Quantity Date Captured Comments Alcohol Use Details Unknown Caffeine Use Details Unknown Tobacco Use Status No Information Smoking Status Former smoker Non-Smoking Tobacco Use Details : No Details Available : No Details Available Sex Female Chief Complaint And Reason For Visit From encounter dated '07/21/2024 08:30'. flashes and floaters complaint (chief complaint). Description: The 74 year old patient presents forevaluation of flashes and floaters complaint in the right eye. Patient states that Sunday she started seeing big black floaters in her right eye. Patient states that she has some slight pain in herright eye and it actually woke her up in the middle of the night. Patient states that she does not see the floaters today yet. Patient denies seeing any veil or curtain. Patient states that she is being tested for IBS but does not have the results yet. Reason For Referral Reason For Referral No Information Plan Of Treatment Date Type Action Status Appointment Emanuel Trevino BOOKED Future Order: Radiology Order Ze [id number] ([id number]), Sent on: Sent Future Order: Radiology Order [id number] ([id number]), Sent on: Sent Future Order: Radiology Order Oc [id number] ([id number]), Sent on: Sent Future Order: Radiology Order Erick [id number] ([id number]), Sent on: Sent Future Order: Radiology Order Al [id number] ([id number]), Sent on: Sent History Of Present Illness Encounter Date Complaint History Of Prese nt Illness flashes and floaters complaint T he 74 year old patient presents for evaluation of flashes and floaters complaint in the right eye. Patient states that Sunday she started seeing big black floaters in her right eye. Patient states that she has some slight pain in her right eye and it actually woke her up in the middle of the night. Patient states that she does not see the floaters today yet. Patient denies seeing any veil or curtain. Patient states that she is being tested for IBS but does not have the results yet. post-op exam Patient presents for a 20 day (04/17/2024 ) S/P YAG CAP 40331 OD with Leon Mendeita MD. Patient states that her vision seems to be better, although she still has trouble at night time. She also reports that she is having some pain in her right eye. The pain comes and goes but keeps her up at night. Vision Changes The 73 year old patient presents for evaluation of Vision Changes in the right eye and left eye. Patient states her vision is worse at all distances and especially at night. Denies eye pain, flashes, floaters, redness, itching and tearing. She has history of other secondary cataract OU. retina exam The 73 year old patient presents for evaluation of retina exam in the right eye and left eye. Patient reports vision is not as good as it used to be and she needs to wear reading glasses to see her computer or her checkbook. Patient reports no floaters, no flashes. Patient reports no redness, no pain, no discomfort. Post-op exam Patient presents for a 29 day (07/19/2022 ) S/P Deluxe IOL (Vivity toric) with LenSx 48727 OS with Leon Mendieta MD. Patient reports the astigmatism effects vision. Denies flashes, floaters, redness, irritation and eye pain. Drops are finished. Discomfort complaint The patient is present for a Discomfort complaint in the right eye. Patient reports 2 days ago she noticed crusting in the right eye with tearing she didn't want to hurt the operative eye so she called in the other day but now it's better. She would like to know if everything could be finished today with this exam ? She would cancel the upcoming visit. She would like to know if droopy lids are interfering with vision and if an operation can be done, she would like to have it done without paying much. post-op exam Patient presents for a 7 day (07/19/2022 ) S/P Deluxe IOL (Vivity toric) with LenSx 25231 OS with Leon Mendieta MD. Vision is partially filmed over, she would like to know if that is normal? she can see extra shadows around the letters during the distance vision test, she questioned if this is due to her astigmatism? She thought this would be corrected. Denies eye pain, irritation, flashes ad floaters. Drops are applied as instructed. post-op exam Patient presents for a 1 day (07/19/2022 ) S/P Deluxe IOL (Vivity toric) with LenSx 06852 OS with Leon Mendieta MD. Patient reports in the past she has seen flashes & floaters. Denies eye pain Patient reports she is applying drops as instructed. cataract evaluation The 72 year old female presents for a cataract evaluation in the left eye. The patient reported no difficulty reading a large-print book or large-print newspaper or numbers on a phone, recognizing people when they are close to you, seeing steps, stairs, or curbs, writing checks or filling out forms, playing games such as bingo, dominos, or card games, cooking. The patient reported little difficulty reading a newspaper or book, watching television. The patient reported moderate difficulty reading small print (such as labels on medicine bottles, a telephone book, or food labels), reading traffic signs, street signs, or store signs. She drives. She reports moderate difficulty driving during the day due to vision. She reports moderate difficulty driving at night due to vision. yag consultation The patient is present for a yag consultation in the right eye. Patient reported Dr. Talbot told her she may need to have a laser procedure done on her right eye. Patient reported Dr. Talbot said she seen something on her lens. Patient reported she has longstanding floaters in her vision. Patient reported her vision is good. Patient denies eye pain and flashes of light. retina exam The 72 year old female presents for a retina exam in the right eye and left eye. Patient denies increased flashes or floaters. Dryness is noticed and the drops she applies are helpful. Patient denies eye pain & irritation. Mattering is noticed infrequently without color. double vision The patient is p resent for a double vision in the right eye and left eye. She is unsure when this began it started several months ago. She notices it horizontally. Headaches The patient is p resent for a Headaches in the right eye and left eye. It started about 2 week(s) ago. retina exam The 71 year old female presents for a retina exam in the right eye and left eye. Patient reports her vision seems to have decreased. Patient reports that this is in both her distance and near vision. Patient reports that her night vision has decreased as well, she states that she is unable to read street signs as well. Patient denies having any pain or discomfort in her eyes. Patient denies having any flashes of light in her vision, she states floaters come and go. cataract evaluation The patient is present for a cataract evaluation in the left eye. The patient reported little difficulty reading small print (such as labels on medicine bottles, a telephone book, or food labels), seeing steps, stairs, or curbs, writing checks or filling out forms, watching television. She drives. She reports a little difficulty driving during the day due to vision. She reports moderate difficulty driving at night due to vision. Patient reports no real issues with glare in her vision at night. contact lens fit The patient is present for a contact lens fit in the left eye. Patient is happy with fit and comfort of current contact. retina exam The 69 year old female presents for a retina exam in the right eye and left eye. Patient complains that she is unable to see at street signs at night. She also sees better with her glasses vs the contact. No pain or discomfort. No flashes or floaters. cataract evaluation The patient is present for a cataract evaluation in the left eye. The patient reported no difficulty reading small print (such as labels on medicine bottles, a telephone book, or food labels), reading a newspaper or book, reading traffic signs, street signs, or store signs, seeing steps, stairs, or curbs. She drives. She reports moderate difficulty driving at night due to vision. She reports no difficulty driving during the day due to vision. Contact lens fit The patient pre sents for a contact lens fit in the right eye and left eye. Patient reports she is option to options to improve her distance vision. Currently wearing the left lens for distance and readers for near. Patient denies, redness, mattering, tearing, irritation and eye pain. She hasn't seen flashes and floater's for awhile. cataract evaluation The patient presents for a cataract evaluation in the left eye. The patient reported no difficulty reading small print (such as labels on medicine bottles, a telephone book, or food labels), reading a newspaper or book, reading a large-print book or large-print newspaper or numbers on a phone, recognizing people when they are close to you, seeing steps, stairs, or curbs, writing checks or filling out forms, cooking, watching Television. The patient reported moderate difficulty reading traffic signs, street signs, or store signs. She drives. She reports no difficulty driving during the day due to vision. She reports moderate difficulty driving at night due to vision. Patient wears a contact lens in the left eye, she did not wear it today but has had it in for the past few weeks. Patient had her cataract out of the right eye in 2015 elsewhere. Functional Status Date Functional Assessmen t No Information Instructions Date Instruction Additional Wali nelson Impression/Plan - Ex plained pathophysiology of posterior vitreous detachment. Reviewed symptoms of retinal detachment in detail, including increased floaters, sustained flashes, veil, curtain, shadow, and sudden decrease in visual acuity. The patient was asked to call the office immediately should any of these symptoms occur. Related to Vitreous degeneration, right eye Impression/Plan Related to Post Operative Exam Impression/Plan Related to Other secondary cataract, right eye Impression/Plan Related to Dry e ye syndrome of bilateral lacrimal glands Follow up - YAG CAP 85454 Relate d to Other secondary cataract, right eye Impression/Plan Related to Dry e ye syndrome of bilateral lacrimal glands Impression/Plan Related to Other secondary cataract, bilateral Impression/Plan Related to Post Operative Exam Impression/Plan Related to Conju nctivitis Impression/Plan Related to Post Operative Exam Impression/Plan Related to Post Operative Exam Impression/Plan Related to Nucle ar sclerosis cataract of left eye Impression/Plan Related to Other secondary cataract, right eye Follow up - Deluxe I OL (Vivity toric) with LenSx 00715 Related to Nuclear sclerosis cataract of left eye Impression/Plan Related to Age-r elated nuclear cataract, left eye Impression/Plan Related to Other secondary cataract, right eye Impression/Plan - Monitor. Relat ed to Other secondary cataract, right eye Impression/Plan - Di scussed cataract diagnosis with the patient. Surgery not indicated will continue to monitor. Patient will update glasses Rx first. Related to Age-related nuclear cataract, left eye Impression/Plan Related to Other secondary cataract, right eye Impression/Plan Related to Nucle ar sclerosis cataract of left eye Impression/Plan Related to Myopi a, left eye Impression/Plan Related to Nucle ar sclerosis cataract of left eye Impression/Plan Related to Other secondary cataract, right eye Follow up - RTC 1 ye ar for complete exam with Dr. Phelps Assessments Type Assessment Date assessment Vitreous degeneration, right eye Patient Care Teams Name Effective Dates (start - stop) Status Members No Information
--- OUTSIDE RECORDS SUMMARY | 2024-09-17 09:17 | XMS_ITS | Encounter Summary ---
Author Organization [facility] Address [address] [place] [address] Care Team Providers Care Mold Construction Supervisor Name Role Phone Jordana Schofield Unavailable Unavailable Ayse Sherman MD Primary Care Provider [phone] Ayse Sherman MD Unavailable [phone] Kateryna Morales MD Primary Care Provider Kateryna Morales MD Unavailable Karen Wilkins DO Primary Care Provider Karen Wilkins DO Unavailable [phone] Reason for Visit * Reason Comments Medication Refill Encounter Details Date Type Department Care Team (Late st Contact Info) Description 03/29/2022 Refill Cardiovascular Medicine: [facility] [address] [facility] [address], [address] [place] [address] Drew Martin MD [address] [place] [address] Medication Refill Social History Tobacco [...] Coronavirus/COVID-19? No / Unsure 03/22/2022 8:09 AM SKI MA[employer]ER [employer] documented as of this encounter Functional Status [...] 1 TABLET BY MOUTH TWICE A DAY 60 tablet 11 03/29/2022 06/30/2022 documented in this encounter Plan of Treatment Not on file documented as of this encounter Goals Goal Patient Goal Type Associated Problems Recent Progress Patient-Stated? Author Resume normal activities Hospital On track( 10:16 PM CDT) Yes Ellen May, DAVE Decrease pain Hospital On track( 10:17 PM CDT) No Garrett Torrez, JUAN-BURNER TENDER Note: Pt's pain will be under control while in the hospital. Medication Adherence Medication Adherence On track( 10:16 PM CDT) No Josefina Koch RN documented as of this encounter Visit Diagnoses Not on filedocumented in this encounter Discontinued Medications Medication Sig Discontinue Reason Start Date End Da te apixaban (ELIQUIS) 5 mg tablet Take one tablet by mouth twice daily. 04/12/2021 03/29/2022 documented as of this encounter Additional Health Concerns Infection Onset Date Last Indicated Resolved Time C difficile Rule-Out 08/29/2023 07/12/2024 024 9:19 PM CDT C difficile Rule-Out 07/11/2024 07/12/2024 025 3:06 PM CDT Assessment Noted Time A fall risk assessment has been complete d for the patient 03/20/2022 3:42 PM [employer]I [employer] PHQ-2 Depression Total Score: 0 03/17/20 22 12:09 PM [employer]I [employer] documented as of this encounter Care Teams Mold Construction Supervisor Relationship Specialty Start Date End Date Ayse Sherman MD [address] [place] [id number] PCP - General Internal Medicine 01/17/22 11/22/22 Kateryna Morales MD [address] [address] PCP - General Internal Medicine 11/23/22 02/05/24 Karen Wilkins DO [address] [place] [address] PCP - General Geriatric Medicine, Internal Medicine 02/06/24 Jordana Schofield 12/13/15 Ayse Sherman MD [address] [place] [address] [address] [place], [place] [id number] CCP - Continuity of Care Provider Internal Medicine 01/19/22 11/27/22 Kateryna Morales MD [address] [place] [address] [address] [place] [address] Internal Medicine 11/23/22 Karen Wilkins DO [address] [place] [address] CCP - Continuity of Care Provider Geriatric Medicine, Internal Medicine 02/06/24 documented as of this encounter
--- OUTSIDE RECORDS SUMMARY | 2024-09-17 09:17 | XMS_ITS | Encounter Summary ---
Author Organization [facility] Address [address] [place] [address] Care Team Providers Care Tangled Yarn Worker Name Role Phone Jordana Schofield Unavailable Unavailable Kateryna Morales MD Unavailable Karen Wilkins DO Primary Care Provider Karen Wilkins DO Unavailable [phone] Encounter Details Date Type Department Care Team (Late Contact Info) Description 08/12/2024 Results Follow-Up Operating Room: [facility] [address] [facility] [address] [place] [address] Mattie Brown MD [address] [facility] [address] [place] [address] SURGICAL PATHOLOGY, EGD REPORT, COLONOSCOPY Social History Tobacco Use Types Packs/Day Years Used Date Smoking Tobacco: Former Cigarettes 0.5 10 1 4 - 1973 Smokeless Tobacco: Never Comments:I [...] the last 12 months, has y our [employer] shut off your service for not paying [...] Assessment Author No 07/11/2024 9:10 AM CDT Duryessica, joslyn, PRIMARY TEACHING ASSISTANT * Does the patient have impaired ambulation: Answer Date of Assessment Author No 07/11/2024 9:10 AM CDT Duryessica, joslyn, PRIMARY TEACHING ASSISTANT * Does the patient have an activity of daily living (ADL) impairment: Answer Date of Assessment Author No 07/11/2024 9:10 AM CDT Duree, joslyn, PRIMARY TEACHING ASSISTANT * Does the patient have an instrumental activity of daily living (IADL) impairment: Answer Date of Assessment Author No 07/11/2024 9:10 AM CDT Duryessica, joslyn, PRIMARY TEACHING ASSISTANT documented as of this encounter Mental Status * Does the patient have a cognitive impairment: Answer Entry Date Author No 07/11/2024 9:10 AM CDT Duryessica, joslyn, PRIMARY TEACHING ASSISTANT documented in this encounter Plan of Treatment [...] track( 10:17 PM CDT) No Garrett Torrez APRN-NP Note: Pt's pain will be under control while in the hospital. Medication Adherence Medication Adherence On track( 10:16 PM CDT) No Josefina Koch, DAVE documented as of this encounter Visit Diagnoses Not on filedocumented in this encounter Additional Health Concerns Assessment Noted Time PHQ-9 Depression Total Score: 5 07/12/19 9:09 AM CDT A fall risk assessment has been complete d for the patient 07/31/2024 4:00 PM CDT PHQ-2 Depression Total Score: 2 07/12/19 9:09 AM CDT documented as of this encounter Care Teams Tangled Yarn Worker Relationship Specialty Start Date End Date Karen Wilkins DO [address] [place] [address] PCP - General Geriatric Medicine, Internal Medicine 02/06/24 Jordana Schofield 12/13/15 Kateryna Morales MD [address] [address] Internal Medicine 11/23/22 Karen Wilkins DO [address] [place] [address] CCP - Continuity of Care Provider Geriatric Medicine, Internal Medicine 02/06/24 documented as of this encounter
--- OUTSIDE RECORDS SUMMARY | 2024-09-17 09:17 | XMS_ITS | Continuity of Care Document ---
Author Organization [facility] ers Address [address] [place] [address] Phone Care Team Providers Care Qa Auditor Name Role Phone Chilo Curtis MD Unavailable Unavailable Allergies, Adverse Reactions, Alerts Substance Reaction Status Criticality Penicillins Active No Information Medications Medication Instructions Dosage Effective Dates (start - stop) Status Comments SIMVASTATIN 20 mg ORAL TABLET Take 1 tablet every day - Active aspirin 81 mg chewable tablet Take 1 tablet every day - Active lisinopril 10 mg-hydrochlorothiazid e 12.5 mg tablet Take 1 tablet every day - Active Procedures Procedure Date Lasik Evaluation Or PreOp Advance Directives Directive Yes / No Effective Date File Name Resuscitation Not Answered N/A N/A Life Support Not Answered N/A N/A Intubation Not Answered N/A N/A Antibiotics Not Answered N/A N/A IV Fluid Support Not Answered N/A N/A Tube Feed Not Answered N/A N/A Other Directive N/A N/A WARNING:The information contained in this section is historical and is provided for information only and does not constitute a legal document or any assurance that the information is still accurate. Please verify the information with the white of the legal document before using it for clinical purposes. Encounters Encounter Description Practice Location Reason(s) For Visit Diagnoses Date Provider Providers Copied on Encounter [facility], [address], [place], [place], [id number], [place] tel:[phone] [employer] [facility] Clinic MyopiaIncipient Cataract [address] [place], [address], [place]. tel:[phone] Referring Provider: Chilo Curtis MD, [address] [place], [address]. tel:[phone] Family History Family Member Type Diagnosis Age At Onset Mother Problem (finding) cataract Payers Payer name Insurance type Covered democrat ID Authoriza tion(s) No Information Social History Type Description Quantity Date Captured Comments Alcohol Use Details No Caffeine Use Details 4 cups per day Tobacco Use Status No Information Smoking Status Former smoker Sex Female Chief Complaint And Reason For Visit No Information Reason For Referral Reason For Referral No Information History Of Present Illness Encounter Date Complaint History Of Prese nt Illness No Information Functional Status Date Functional Assessmen t No Information Instructions Date Instruction Additional Infor mation Lasik Eval today - C ould proceed with Lasik sx but with developing cataract recommend waiting till they're visually significant. Can recreate monovision at the time of cataract sx. If proceed with cataract sx now it would be out of pocket FFR $4650/eye vs. FFC $2650/eye. Related to Myopia - Discussed phaco pr ocedure, risks, benefits and alternatives. Discussed toric/presbyopic/standard IOLs. Discussed spectacles required for at least some distance regardless of selection. Discussed near vs. distance target. Related to Incipient Cataract Assessments Type Assessment Date No Information Patient Care Teams Name Effective Dates (start - stop) Status Members No Information
--- NOTE | 2024-09-17 09:24 | ED.WOUNDLAC ---
HPI - Wound/Laceration General Chief Complaint: Wound/Laceration Stated Complaint: Suture Removal Time Seen by Provider: 09/17/24 09:15 Source: patient and RN notes reviewed Mode of arrival: ambulatory Limitations: no limitations History of Present Illness HPI narrative: Patient presents today requesting suture removal from her face. She had a squamous cell carcinoma removed 1 week ago by her sales representative sales manager in [place], but is in town taking care of her mother and is unable to get back for removal. She did have permission from her doctor to come to have it removed here. She has had no issues since placement. Related Data Home Medications ?Medication ?Instructions ?Recorded ?Confirmed ?Last Taken ?Type albuterol sulfate 90 mcg/actuation inhalation 09/17/24 Unknown History aerosol inhaler amlodipine 5 mg tablet mg 09/17/24 Unknown History aspirin 09/17/24 Unknown History budesonide 3 mg mg PO 09/17/24 Unknown History capsule,delayed,extended release clopidogrel 75 mg tablet mg 09/17/24 Unknown History famotidine 20 mg tablet mg 09/17/24 Unknown History flecainide 50 mg tablet mg 09/17/24 Unknown History metoprolol succinate 25 mg mg PO 09/17/24 Unknown History tablet,extended release 24 hr sertraline 100 mg tablet mg 09/17/24 Unknown History sertraline 50 mg tablet mg 09/17/24 Unknown History Allergies Allergy/AdvReac Type Severity Reaction Status Date / Time Penicillins Allergy Intermediate unsure Verified 09/17/24 09:06 Review of Systems Review of Systems: CONSTITUTIONAL: Denies body aches, fever, chills, or sweats. EYES: Denies visual changes, redness, or discharge. ENT: Denies rhinorrhea, congestion, sore throat, or otalgia. CARDIOVASCULAR: Denies chest pain, palpitations, or edema. RESPIRATORY: Denies cough or dyspnea. GASTROINTESTINAL: Denies abdominal pain, nausea, vomiting, or diarrhea. GENITOURINARY: Denies dysuria or hematuria. SKIN: Sutures to right cheek MUSCULOSKELETAL: Denies back pain, joint pain, or myalgia. NEUROLOGIC: Denies headache, numbness, tingling, or weakness. PSYCH: Denies depression or anxiety. [facility] Past Medical History Medical History (Updated 09/17/24 @ 09:26 by Ayse James, MANAGER OF HUMAN RESOURCES, BC) Squamous cell carcinoma Comments At time of signature, I have reviewed and agree with nursing past medical, surgical, social and family history unless otherwise noted. Please see nursing chart for further information. There is no relevant family history pertinent to the presenting complaint Exam Narrative: GENERAL: Well-appearing, well-nourished, and in no acute distress. HEAD: Normocephalic, atraumatic. EYES: EOMI. No redness or drainage. Conjunctivae normal. ENT: Mucous membranes pink and moist. NECK: Normal AROM. CHEST: No respiratory distress. EXTREMITIES: Normal range of motion. No edema. SKIN: Warm, dry, no rash. Capillary refill normal. Normal skin turgor. Approximately 3 cm sutured incision to the right cheek with running sutures in place. No erythema, induration, or any other signs of bacterial infection. NEURO: No focal deficits. Alert and oriented x3. Gait steady. PSYCH: Normal affect. No signs of depression or anxiety. Course Course Level of Care: Express Care Visit Vital Signs Vital signs: Vital Signs Temperature 97.3 F L 09/17/24 09:00 Pulse Rate 79 09/17/24 09:00 Respiratory Rate 16 09/17/24 09:00 Blood Pressure 115/75 09/17/24 09:00 Pulse Oximetry 100 09/17/24 09:00 Oxygen Delivery Room Air 09/17/24 09:00 Temperature 97.3 F L 09/17/24 09:00 Pulse Rate 79 09/17/24 09:00 Respiratory Rate 16 09/17/24 09:00 Blood Pressure 115/75 09/17/24 09:00 Pulse Oximetry 100 09/17/24 09:00 Oxygen Delivery Room Air 09/17/24 09:00 Reviewed Procedures Other Procedure Procedure 1: Other Procedure: Running suture removed without difficulty from right cheek. Patient tolerated procedure well. MDM - Wound/Laceration MDM Narrative Medical decision making narrative: Suture removed. Patient tolerated procedure. No active bleeding. Anticipatory guidance given. Patient will continue to follow instructions on her postop paperwork Differential Diagnosis Differential diagnosis: Likely laceration, abscess and other (Suture removal) Critical Care Time Critical Care Time Critical Care Time: No Discharge Plan Discharge Clinical Impression: Visit for suture removal Patient Disposition: Home Condition: Stable Instructions: Stitches Removal (ED) Additional Instructions: Your sutures have been successfully removed without any complications. Moisturize as instructed on your doctors paperwork. Follow-up with your doctor as needed. Patient Language: Cuban Prescriptions: No Action sertraline 100 mg tablet clopidogrel 75 mg tablet amlodipine 5 mg tablet famotidine 20 mg tablet flecainide 50 mg tablet metoprolol succinate 25 mg tablet extended release 24 hr PO budesonide 3 mg capsule,delayed,extend.release PO albuterol sulfate 90 mcg/actuation HFA aerosol inhaler INHALATION sertraline 50 mg tablet aspirin Follow-up/Referrals: UNKNOWN,DOCTOR [Primary Care Provider] - Time of Disposition: 09:20
--- OUTSIDE RECORDS SUMMARY | 2024-09-17 09:28 | XMS_ITS | Continuity of Care Document ---
Author Organization [facility] ers Address [address] [place] [address] Phone Care Team Providers Care Air Quality Engineer Name Role Phone Chilo Curtis MD Unavailable [...] Diagnoses Date Provider Providers Copied on Encounter [facility] [employer] [facility], [address], [place], [place], [id number], [place] tel:[phone] [employer] [facility] Clinic MyopiaIncipient Cataract [address] [place], [address], [place]. tel:[phone] Referring Provider: Chilo Curtis MD, [address] [place], [address]. tel:[phone] Family History Family Member Type Diagnosis Age At Onset Mother Problem (finding) cataract Payers Payer name Insurance type Covered libertarian ID Authoriza tion(s) No Information Social History [...]
--- OUTSIDE RECORDS SUMMARY | 2024-09-17 09:28 | XMS_ITS | Continuity of Care Document ---
Author Organization [facility] Address [address] [place] [address] Phone Care Team Providers Care Encoding Machine Operator Name Role Phone Colton Daniels MD Unavailable [...] Diagnoses Date Provider Providers Copied on Encounter [facility], [address] [place] [address], [id number], tel:[phone] [facility] Office flashes and floaters complaint (chief complaint) Vitreous degeneration, right eye Jeremiah Segura. [address], [place], [place], [address] . tel: [phone] Referring Provider: Modesta Clark [address], [place], [address] . tel:[phone] [facility], [address] [place] [address], [id number], tel:[phone] [facility] Office post-op exam (chief complaint) Post Operative Exam 5 Gayatri Quintero. [address], [place], [place], [address] . tel: [phone] Referring Provider: Modesta Clark [address], [place], [address] . tel:[phone] [facility], [address] [place] [address], [id number], tel:[phone] [facility] Surgery [facility] Other secondary cataract, right eye 5 Gayatri Quintero. [address], [place], [place], [address] . tel: [phone] Referring Provider: Modesta Clark [address], [place], [address] . tel:[phone] Offic/outpt E&m Estab Low-mod [facility], [address] [place] [address], [id number], [place] tel:[phone] [facility] Vision Changes (chief complaint) Other secondary cataract, right eyeDry eye syndrome of bilateral lacrimal glands 4 Walline Leon. [address], [place], [place], [address] . tel: [phone] Referring Provider: Modesta Clark [address], [place], [address] . tel:[phone] [facility], [address] [place] [address], [id number], [place] tel:[phone] [facility] Office retina exam (chief complaint) Other secondary cataract, bilateralDry eye syndrome of bilateral lacrimal glands 4 Walline Leon. [address], [place], [place], [address] . tel: [phone] Referring Provider: Modesta Clark [address], [place], [address] . tel:[phone] [facility], [address] [place] [address], [id number], [place] tel:[phone] [facility] Office Post-op exam (chief complaint) Post Operative Exam 3 Noemi Molina [address], [place], [place], [id number] . tel: [phone] Referring Provider: Modesta Clakr [address], [place], [address] . tel:[phone] [facility], [address] [place] [address], [id number], [place] tel:[phone] [facility] Discomfort complaint (chief complaint) Conjunctivitis 3 Noemi Black. [address], [place], [place], [address] . tel: [phone] Referring Provider: Modesta Clark [address], [place], [address] . tel:[phone] [facility], [address] [place] [address], [id number], tel:[phone] [facility] Office post-op exam (chief complaint) Post Operative Exam Jul- 3 Noemi Black. [address], [place], [place], [address] . tel: [phone] Referring Provider: Modesta Clark [address], [place], [address] . tel:[phone] [facility], [address] [place] [address], [id number], [place] tel:[phone] [facility] Office post-op exam (chief complaint) Post Operative Exam 3 Noemi Black. [address], [place], [place], [id number] . tel: [phone] Referring Provider: Modesta Clark [address], [place], [address] . tel:[phone] [facility], [address] [place] [address], [id number], [place] tel:[phone] [facility] Age-related nuclear cataract, left eye Jul- 3 Gayatri LOVE [address], [place], [place], [address] . tel: [phone] Referring Provider: Sofia Colorado [address], [place], [address] . tel:[phone] [facility], [address] [place] [address], [id number], tel:[phone] [facility] Office cataract evaluation (chief complaint)yag consultation (chief complaint) Nuclear sclerosis cataract of left eyeOther secondary cataract, right eye May-0 3 Gayatri Quintero. [address], [place], [place], [address] . tel: [phone] Referring Provider: Sofia Colorado [address], [place], [address] . tel:[phone] [facility], [address] [place] [address], [id number], tel:[phone] [facility] Office retina exam (chief complaint)trevin ble vision (chief complaint)Hea daches (chief complaint) Age-related nuclear cataract, left eyeOther secondary cataract, right eye 3 Noemi Black. [address], [place], [place], [address] . tel: [phone] [facility], [address] [place] [address], [id number], tel:[phone] [facility] Office retina exam (chief complaint)cat aract evaluation (chief complaint) Other secondary cataract, right eyeAge-related nuclear cataract, left eye 2 Noemi Black. [address], [place], [place], [address] . tel: [phone] [facility], [address] [place] [address], [id number], tel:[phone] [facility] Office retina exam (chief complaint)con tact lens fit (chief complaint)cat aract evaluation (chief complaint) Other secondary cataract, right eyeNuclear sclerosis cataract of left eye 1 Noemi Black. [address], [place], [place], [address] . tel: [phone] [facility], [address] [place] [address], [id number], tel:[phone] [facility] Office Contact lens fit (chief complaint) Myopia, left eye Jeferson- 0 Noemi Black. [address], [place], [place], [address] . tel: [phone] [facility], [address] [place] [address], [id number], tel:[phone] [facility] Office cataract evaluation (chief complaint) Nuclear sclerosis cataract of left eyeOther secondary cataract, right eye Oct-0 9 Lenin Marks. [address], [place], [place], [address] . tel: [phone] Family History Family Member Type Diagnosis Age At Onset Father Problem (finding) No history of Glaucoma Maternal aunt Problem (finding) Diabetes mellitus Payers Payer name Insurance type Covered democrat ID Authoriza tinikos(s) Medicare [place] WP MB [id number] BC/BS BL [id number] Social History Type Description Quantity Date Captured [...] Trevino BOOKED Future Order: Radiology Order Ze [id number] ([id number]), Sent on: Sent Future Order: Radiology Order Al [id number] ([id number]), Sent on: Sent Future Order: Radiology Order Oc [id number] ([id number]), Sent on: Sent Future Order: Radiology Order Erick [id number] ([id number]), Sent on: Sent Future Order: Radiology Order Al [id number] ([id number]), Sent on: Sent History Of Present [...] 20 day (04/17/2024 ) S/P YAG CAP [id number] OD with Leon Mendieta MD. Patient states that her vision seems [...] S/P Deluxe IOL (Vivity toric) with Len[employer]x 47598 OS with Leon Mendieta MD. Patient reports [...] S/P Deluxe IOL (Vivity toric) with LenSx 06141 OS with Leon Mendieta MD. Vision is [...] S/P Deluxe IOL (Vivity toric) with LenSx 78190 OS with Leon Mendieta MD. Patient reports [...] lacrimal glands Follow up - YAG CAP [id number] Relate d to Other secondary cataract, right [...] Deluxe I OL (Vivity toric) with LenSx 98585 Related to Nuclear sclerosis cataract of left [...]
== END 2024-09-17 09:23 | disposition home or self-care (01) ==
PROVIDERS: Emergency Provider Nurse Practitioner
DX: Z48.02 Encounter for removal of sutures (principal); Z85.828 Personal history of other malignant neoplasm of skin
CPT/HCPCS: 99202; G0463